=== PATIENT | female | born 1990 | race African-American/Black ===

== ENCOUNTER 2021-07-19 15:00 | Emergency (ER) | payer OTHER, SELFPAY ==
[2021-07-19 15:11] VITALS: BP 101/64; PULSE 62; RESP 16; TEMP 36.9; O2SAT 100
--- NOTE | 2021-07-19 15:28 | ED.SKABFB ---
HPI - Skin/Abscess/Foreign Bdy General Chief complaint: Skin/Abscess/Foreign Body Stated complaint: Boil under arm Time Seen by Provider: 07/19/21 15:28 Source: patient Mode of arrival: ambulatory Limitations: no limitations History of Present Illness HPI narrative: Jimbo Morales is a 31 yo female with a PMH of abscess under arms who [facility] with a soft developing abscess under her left arm. She states she has them annually always under the left arm. However the area is not yet very indurated. She is not allergic to any medications; has had to have abscesses drained only once Related Data Allergies Allergy/AdvReac Type Severity Reaction Status Date / Time No Known Allergies Allergy Verified 07/19/21 15:09 Review of Systems Review of Systems: CONSTITUTIONAL: Denies fever, chills, sweats. EYES: Denies visual changes, redness, discharge. ENT: Denies rhinorrhea, congestion, sore throat, otalgia. CARDIOVASCULAR: Denies chest pain, palpitations, edema. RESPIRATORY: Denies dyspnea, wheezing, cough GASTROINTESTINAL: Denies abdominal pain, nausea, vomiting, diarrhea. GENITOURINARY: Denies dysuria, hematuria, abnormal discharge SKIN: Denies rash or itching. Small area under left arm that is tender to touch NEUROLOGIC: Denies numbness, or focal weakness. PSYCHIATRIC: Denies anxiety or depression. PMFSH Past Medical History Medical History Abscess of axilla, left Surgical History Surgical History S/P lumpectomy, right breast Family History Family History (Updated 07/19/21 @ 15:34 by Rosibel Nazario CNP) Other Hypertension Social History Social History Smoking status: Never smoker Gender identity (if verbalized by the patient): Female Comments At time of signature, I agree with nursing past medical, surgical, social and family history. There is no relevant family history pertinent to the presenting complaint. Exam Narrative: GENERAL: This is a well-nourished, well-developed patient, in mild distress. HEAD: normocephalic, atraumatic. EYES: Sclera clear/white. Vision is grossly intact. EARS: External ears normal. Hearing grossly intact. NOSE: External nose normal without nasal discharge, nares without redness, no rhinorrhea. THROAT: Mucous membranes moist, NECK: Neck supple, non-tender CARDIOVASCULAR: Regular rate and rhythm without murmurs, gallops, or rubs. RESPIRATORY: Clear to auscultation. Breath sounds equal bilaterally. No wheezes, rales, or rhonchi. GASTROINTESTINAL: Abdomen soft, SKIN: warm, intact with no suspicious lesions or rash, good texture and turgor. Small lesion 2 x 3 under left axilla that is not indurated but is very tender to touch NEURO: awake, alert, and oriented to person, place and time. There were no obvious focal neurologic abnormalities. Steady gait EXTREMITIES: Normal range of motion. BACK: Nontender without deformity Course Course Emergency Course: Patient comes with a history of abscess to her left arm she is in the beginning stages of developing another one Started on antibiotics; warm soaks under left arm Vital Signs Vital signs: Vital Signs Temperature 98.4 F 07/19/21 15:11 Pulse Rate 62 07/19/21 15:11 Respiratory Rate 16 07/19/21 15:11 Blood Pressure 101/64 07/19/21 15:11 Pulse Oximetry 100 07/19/21 15:11 Temperature 98.4 F 07/19/21 15:11 Pulse Rate 62 07/19/21 15:11 Respiratory Rate 16 07/19/21 15:11 Blood Pressure 101/64 07/19/21 15:11 Pulse Oximetry 100 07/19/21 15:11 MDM - Skin/Abscess/Foreign Bdy Differential Diagnosis Differential diagnosis: Likely abscess of skin or subcutaneous tissue, urticaria, contact dermatitis and other Critical Care Time Critical Care Time Critical Care Time: No Discharge Plan Discharge Clinical Impres
== END 2021-07-19 15:43 | disposition home or self-care (01) ==
PROVIDERS: Emergency Provider Nurse Practitioner; PCP Physician Assistant
DX: L03.112 Cellulitis of left axilla (principal)
CPT/HCPCS: 99213; G0463

== ENCOUNTER 2021-08-22 10:28 | Emergency (ER) | payer OTHER, SELFPAY ==
[2021-08-22 10:38] VITALS: BP 110/65; PULSE 68; RESP 18; TEMP 36.6; O2SAT 100
--- NOTE | 2021-08-22 11:05 | ED.SKABFB ---
HPI - Skin/Abscess/Foreign Bdy General Chief complaint: Skin/Abscess/Foreign Body Stated complaint: Swelling under Arm Time Seen by Provider: 08/22/21 11:07 Source: patient, family and RN notes reviewed Mode of arrival: ambulatory Limitations: no limitations History of Present Illness HPI narrative: 31 year old female who presents to [facility] with complaints of pain and firm tissue area in left axilla for the past 3 days. Patient reports some pain down her inner left arm also with no swelling or redness noted.Patient was seen last month for similar tender firm area of left axilla and was prescribed antibiotics which she completed. Patient denies any fevers, chills or sweats. Related Data Home Medications Medication Instructions Recorded Confirmed No Home Medications 08/22/21 08/22/21 Allergies Allergy/AdvReac Type Severity Reaction Status Date / Time No Known Allergies Allergy Verified 08/22/21 11:00 Review of Systems Review of Systems: CONSTITUTIONAL: Denies fever, chills, or sweats. EYES: Denies visual changes, redness, or discharge. ENT: Denies rhinorrhea, congestion, sore throat, or otalgia. CARDIOVASCULAR: Denies chest pain, palpitations, or edema. RESPIRATORY: Denies cough or dyspnea. GASTROINTESTINAL: Denies abdominal pain, nausea, vomiting, or diarrhea. GENITOURINARY: Denies dysuria or hematuria. SKIN: Denies rash or itching.1cm by 1cm firm tender area to left axilla with no induration with pain down inner upper arm without redness or swelling. MUSCULOSKELETAL: Denies back pain, joint pain, or myalgia. NEUROLOGIC: Denies headache, numbness, or weakness. PSYCHIATRIC: Denies anxiety or depression. All systems reviewed & are unremarkable except as noted in HPI and below PMFSH Past Medical History Medical History Abscess of axilla, left Surgical History Surgical History S/P lumpectomy, right breast Family History Family History (Updated 07/19/21 @ 15:34 by Rosibel Nazario CNP) Other Hypertension Social History Social History Smoking status: Never smoker Gender identity (if verbalized by the patient): Female Comments At time of signature agree with nursing documentation of past medical, surgical, family and social history . There is no relevant family history pertinent to presenting complaint. Exam Narrative: GENERAL: Well-appearing, well-nourished, and in no acute distress. HEAD: Normocephalic, atraumatic. EYES: PERRLA and EOMI. ENT: Nares clear, no rhinorrhea or epistaxis. Mucous membranes moist.TM's normal with good light reflex, throat pink with no lesions or exudates. NECK: Supple. no lymphadenopathy CHEST: Clear to auscultation. No respiratory distress. HEART: Regular rate and rhythm. No murmur heard. Normal peripheral pulses. ABDOMEN: Soft, nontender, nondistended, normal active bowel sounds. EXTREMITIES: Normal range of motion. No edema. SKIN: Warm, dry, no rash.1cm X1cm firm tender area noted to left axilla with no induration or redness of tissue with pain which does go down the inner aspect of her left inner arm, no redness or swelling to her left inner arm NEURO: No focal deficits. Alert and oriented x3. Course Vital Signs Vital signs: Vital Signs Temperature 36.6 C 08/22/21 10:38 Pulse Rate 68 08/22/21 10:38 Respiratory Rate 18 08/22/21 10:38 Blood Pressure 110/65 08/22/21 10:38 Pulse Oximetry 100 08/22/21 10:38 Temperature 36.6 C 08/22/21 10:38 Pulse Rate 68 08/22/21 10:38 Respiratory Rate 18 08/22/21 10:38 Blood Pressure 110/65 08/22/21 10:38 Pulse Oximetry 100 08/22/21 10:38 MDM - Skin/Abscess/Foreign Bdy Differential Diagnosis Differential diagnosis: Likely abscess of skin or subcutaneous tissue, cellulitis and other (nonindurated firm nodule left axilla) Medical Records
== END 2021-08-22 11:32 | disposition home or self-care (01) ==
PROVIDERS: Emergency Provider Registered Nurse; PCP Physician Assistant
DX: L03.112 Cellulitis of left axilla (principal)
CPT/HCPCS: 99213; G0463

== ENCOUNTER 2021-09-09 10:40 | Outpatient (CLI) | payer OTHER, SELFPAY ==
--- NOTE | ~2021-09-09 | US_ITS ---
US axilla LT 09/09/2021 11:26 Indication: Left axillary soreness for one month. Procedure: High-resolution ultrasound of the left axilla Comparison: No prior studies for comparison. Findings: There are normal-appearing lymph nodes in the left axilla with fatty hilum, largest measuri ng 1.7 x 1.1 x 0.7 cm. There is an oval hypoechoic mass measuring 9 x 8 x 5 mm with possible internal calcifications. Parallel orientation, no posterior features with internal vascularity. Impression: 1: Oval hypoechoic 9 mm left axillary mass with internal vascularity and possible internal calcificat ions. This does not have a typical appearance for lymph node. Ultrasound-guided left axillary biopsy recommended. BI-RADS CATEGORY 4-SUSPICIOUS ABNORMALITY . Reviewed, dictated and finalized at location A. [employer] Impression: 1: Oval hypoechoic 9 mm left axillary mass with internal vascularity and possib le internal calcifications. This does not have a typical appearance for lymph n ode. Ultrasound-guided left axillary biopsy recommended. BI-RADS CATEGORY 4-SUSPICIOUS ABNORMALITY .
[2021-09-12 17:27] LABS: Bartonella henselae IgG Negative; Bartonella henselae IgM Negative; Bartonella quintana IgG Negative; Bartonella quintana IgM Negative
== END 2021-09-09 10:41 | disposition home or self-care (01) ==
PROVIDERS: PCP Physician Assistant; Visit Provider Physician Assistant
DX: R59.1 Generalized enlarged lymph nodes (principal); L03.114 Cellulitis of left upper limb
CPT/HCPCS: 36415; 76882; 86611

== ENCOUNTER 2021-09-11 16:17 | Outpatient (CLI) | payer OTHER, SELFPAY ==
--- NOTE | ~2021-09-11 | US_ITS ---
EXAMINATION: US venous doppler UE EXAM DATE: 09/11/2021 17:27 INDICATION: LT Arm Pain Left Upper Arm Pain, Left Hand Cold. TECHNIQUE: Multiple grayscale, color flow, Doppler sonographic images of the left upper extremity vei ns obtained by technologist. Compression was performed where able. There is no prior study for jessica de la paz. FINDINGS: Scanning in the area annotated anterior lower arm above elbow area of palpable abnormality demonstrates a focal region which was measured at 1.1 x 0.3 x 0.8 cm, isoechoic to fat. Uncertain whe ther or not this could be a small lipoma. Left upper extremity: Jugular vein: ------------> Normal. Subclavian vein: --------> Normal. Axillary vein:------------> Normal. Brachial vein:-----------> Normal. Basilic vein: ------------> Normal. Cephalic vein: ----------> Normal. Radial vein: ------------> Normal. Ulnar vein: > Normal. IMPRESSION: No deep venous thrombosis of the left upper extremity. Reviewed, dictated and finalized at location A. [employer]
== END 2021-09-11 16:18 | disposition home or self-care (01) ==
PROVIDERS: PCP Physician Assistant; Visit Provider Physician Assistant
DX: M79.602 Pain in left arm (principal)
CPT/HCPCS: 93971

== ENCOUNTER 2021-11-21 14:17 | Emergency (ER) | payer OTHER, SELFPAY ==
[2021-11-21] VITALS (31 sets, daily range): BP systolic 108–125; BP diastolic 67–88; PULSE 68–79; RESP 16; TEMP 36.7; O2SAT 98–100
--- NOTE | 2021-11-21 16:38 | ED.DIZZY ---
HPI - Dizziness General Chief Complaint: Dizziness Stated Complaint: light headed Time Seen by Provider: 11/21/21 16:01 Source: patient and RN notes reviewed Mode of arrival: ambulatory Limitations: no limitations History of Present Illness HPI Narrative: 31-year-old female presenting to the emergency department for evaluation of 4 days of lightheaded and dizziness. Patient states that when the symptoms started she did have a mild headache but the headache has since resolved. Patient just completed her last menstrual cycle on 11/19. Patient states she did have some heavy bleeding at the time. Patient denies any current bleeding. Patient denies any fevers. Patient denies any associated nausea vomiting or diarrhea. Patient denies any headache. Patient denies any syncope. Patient states she did have an episode of this previously which was due to dehydration. Related Data Home Medications Medication Instructions Recorded Confirmed No Home Medications 08/22/21 08/22/21 Allergies Allergy/AdvReac Type Severity Reaction Status Date / Time No Known Allergies Allergy Verified 08/22/21 11:00 Review of Systems Review of Systems: CONSTITUTIONAL: Generalized weakness EYES: Denies visual changes, redness, or discharge. ENT: Denies rhinorrhea, congestion, sore throat, or otalgia. CARDIOVASCULAR: Denies chest pain, palpitations, or edema. RESPIRATORY: Denies cough or dyspnea. GASTROINTESTINAL: Denies abdominal pain, nausea, vomiting, or diarrhea. GENITOURINARY: Denies dysuria or hematuria. SKIN: Denies rash or itching. MUSCULOSKELETAL: Denies back pain, joint pain, or myalgia. NEUROLOGIC: Denies headache, numbness, or weakness. PMFSH Past Medical History Medical History Abscess of axilla, left Surgical History Surgical History S/P lumpectomy, right breast Family History Family History (Updated 07/19/21 @ 15:34 by Rosibel Nazario CNP) Other Hypertension Social History Social History Smoking status: Never smoker Gender identity (if verbalized by the patient): Female Exam Narrative: APPEARANCE: Well appearing, no pain, no distress, well-nourished. HEAD: normocephalic, atraumatic. EYES: PERRLA/EOMI, conjunctivae clear. NECK: Supple. No adenopathy, no masses. RESPIRATORY: Airway patent, respirations nonlabored. Clear to auscultation bilaterally, no rales, rhonchi, wheezing. CARDIOVASCULAR: Regular rate and rhythm without murmurs rubs or gallops. ABDOMINAL: Soft, nontender, nondistended, normal bowel sounds MUSCULOSKELETAL: Moves all extremities. Strength/ROM intact, No edema, No calf tenderness. NEURO: Alert. Cranial nerves II through XII intact. SKIN: Warm, dry. Normal Color Course Course Emergency Course: Patient did feel improved with treatment. Patient declined her Covid testing. Patient was updated the results of her work-up. All questions concerns were addressed. Patient was encouraged to have close follow-up with her primary care physician. Vital Signs Vital signs: Vital Signs Temperature 98.0 F 11/21/21 14:34 Pulse Rate 77 11/21/21 14:34 Respiratory Rate 16 11/21/21 14:34 Blood Pressure 113/68 11/21/21 14:34 Pulse Oximetry 99 11/21/21 14:34 Temperature 98.0 F 11/21/21 14:34 Pulse Rate 73 11/21/21 19:38 Respiratory Rate 16 11/21/21 19:38 Blood Pressure 125/88 11/21/21 19:38 Pulse Oximetry 100 11/21/21 19:38 MDM - Dizziness Lab Data Attestation: I reviewed the patient's lab results. Result diagrams: 11/21/21 16:51 11/21/21 16:51 Labs: Lab Results 11/21/21 11/21/21 11/21/21 Range/Units 16:51 16:51 16:51 WBC 3.8 L (4.5-10.0) K/mm3 RBC 4.70 (4.2-5.4) M/mm3 Hgb 14.1 (12.0-15.0) g/dL Hct 41.8 (37.0-47.0) % MCV 88.9 (80-100) fl
[2021-11-21] MEDS: SODIUM CHLORIDE 0.9% IV 1,000 ML 999 ML IV CONT (16:55)
--- NOTE | 2021-11-21 17:00 | PC.NURSE ---
patient refused COVID testing at this time. Dr Lopez aware
[2021-11-21 17:08] LABS: Hematocrit 41.8 % (37.0-47.0); Hemoglobin 14.1 g/dL (12.0-15.0); Mean Corpuscular HGB Conc 33.7 g/dl (32-36); Mean Corpuscular Volume 88.9 fl (80-100); Mean Platelet Volume 11.5 fl (7.4-10.4); Platelet Count Result 169 k/mm3 (150-375); Red Cell Distribution Width 13.1 % (11.5-14.5); White Blood Count 3.8 K/mm3 (4.5-10.0)
[2021-11-21 17:48] LABS: Band Neutrophils Percent 1 % (0-6); Lymphocytes Absolute Manual 1.63 K/mm3 (1.1-4.5); Monocytes Absolute Manual 0.34 K/mm3 (0.1-0.90); Monocytes Percent Manual 9 % (3-9); Neutrophils Absolute Manual 1.82 K/mm3 (1.7-7.2); Neutrophils Percent Manual 47 % (46-73); Platelet Estimate Adequate (Adequate); Total Cells Counted 100
[2021-11-21 17:53] LABS: Alanine Aminotransferase 21 U/L (4-35); Albumin Level 4.6 g/dL (3.5-5.1); Alkaline Phosphatase 65 U/L (38-126); Anion Gap 8 mmol/L (8-16); Aspartate Amino Transferase 35 U/L (14-36); Bilirubin,Total 0.9 mg/dL (0.2-1.3); Blood Urea Nitrogen 15 mg/dL (7-17); Calcium 9.2 mg/dL (8.4-10.2); Carbon Dioxide 23 mmol/L (22-30); Chloride 109 mmol/L (98-107); Estimated CRCL calculation 83 ml/min; Estimated Glomerular Filt Rate > 60; Glucose 98 mg/dL (65-110); Potassium 4.9 mmol/L (3.4-5.0); Sodium 140 mmol/L (137-145)
[2021-11-21 18:00] LABS: Add Urine Microscopic? YES; Appearance Urine Clear (Clear); Bilirubin Urine Negative (Negative); Blood Urine Negative (Negative); Color Urine Yellow (Yellow); Glucose Urine UA Negative (Negative); Ketones Urine Negative (Negative); Leukocyte Esterase Ur Negative LEU/UL (Negative); Mucus Urine Moderate /lpf; Nitrate Urine Negative (Negative); Protein Urine Negative (Negative); RBC Urine 0-2 /hpf (0-2); Squamous Epithelial Cell Urine Occasional /hpf (Few); WBC Urine 0-3 /hpf
[2021-11-21 18:01] LABS: Specific Grav Ur 1.032 (1.001-1.035)
== END 2021-11-21 19:38 | disposition home or self-care (01) ==
PROVIDERS: Emergency Provider Emergency Medicine; PCP Physician Assistant
DX: R53.1 Weakness (principal)
CPT/HCPCS: 36415; 80053; 81001; 81025; 85025; 96360; 99283; J7030

== ENCOUNTER 2022-03-24 16:32 | Emergency (ER) | payer OTHER, SELFPAY ==
--- NOTE | 2022-03-24 17:25 | ED.SKABFB ---
HPI - Skin/Abscess/Foreign Bdy General Chief complaint: Skin/Abscess/Foreign Body Stated complaint: skin infection Time Seen by Provider: 03/24/22 17:18 History of Present Illness HPI narrative: 31-year-old female presents to the emergency room for evaluation of draining abscess under left axilla. Patient has history of hidradenitis suppurativa. Patient states that she has been appointment with her general surgeon to have the lesion removed. Patient noticed increased pain yesterday and some purulent foul-smelling discharge. Related Data Allergies Allergy/AdvReac Type Severity Reaction Status Date / Time No Known Allergies Allergy Verified 08/22/21 11:00 Review of Systems Review of Systems: CONSTITUTIONAL: Denies fever, chills, or sweats. EYES: Denies visual changes, redness, or discharge. ENT: Denies rhinorrhea, congestion, sore throat, or otalgia. CARDIOVASCULAR: Denies chest pain, palpitations, or edema. RESPIRATORY: Denies cough or dyspnea. GASTROINTESTINAL: Denies abdominal pain, nausea, vomiting, or diarrhea. GENITOURINARY: Denies dysuria or hematuria. SKIN: Reports abscess to left axilla MUSCULOSKELETAL: Denies back pain, joint pain, or myalgia. NEUROLOGIC: Denies headache, numbness, dizziness, or weakness. PSYCHIATRIC: Denies anxiety or depression. PMFSH Past Medical History Medical History Abscess of axilla, left Surgical History Surgical History S/P lumpectomy, right breast Family History Family History Other Hypertension Social History Social History Smoking status: Never smoker Gender identity (if verbalized by the patient): Female Exam Narrative: GENERAL: Well-appearing, well-nourished, and in no acute distress. HEAD: Normocephalic, atraumatic. EYES: PERRLA and EOMI. ENT: Nares clear, no rhinorrhea or epistaxis. Mucous membranes moist. Oropharynx without tonsillar hypertrophy exudate or other lesions. Bilateral TMs pearly nicolas nonbulging NECK: Supple. No adenopathy or masses. No carotid bruits or JVD CHEST: Clear to auscultation. No respiratory distress. No wheezes rales or rhonchi HEART: Regular rate and rhythm. No murmur heard. Normal peripheral pulses. ABDOMEN: Soft, nontender, nondistended, normal active bowel sounds. EXTREMITIES: Normal range of motion. No edema. SKIN: Left axilla: Localized erythema, warmth. Sensitive to light touch around the erythematous area. No notable lymphangitic spread no area of fluctuance. No observable drainage NEURO: No focal deficits. Alert and oriented x3. PSYCH: Normal mood and affect. Course Vital Signs Vital signs: Vital Signs Temperature 36.5 C 03/24/22 17:26 Pulse Rate 89 03/24/22 17:26 Respiratory Rate 16 03/24/22 17:26 Blood Pressure 139/84 03/24/22 17:26 Pulse Oximetry 99 03/24/22 17:26 Oxygen Delivery Room Air 03/24/22 17:26 Temperature 36.5 C 03/24/22 17:26 Pulse Rate 89 03/24/22 17:26 Respiratory Rate 16 03/24/22 17:26 Blood Pressure 139/84 03/24/22 17:26 Pulse Oximetry 99 03/24/22 17:26 Oxygen Delivery Room Air 03/24/22 17:26 Discharge Plan Discharge Clinical Impression: Axillary hidradenitis suppurativa Patient Disposition: Home, Self-Care Condition: Stable Instructions: Antibiotic Form, Abscess (ED) Prescriptions: New clindamycin HCl 300 mg capsule 300 mg PO Q8H 10 Days Qty: 30 0RF No Action clindamycin HCl 300 mg capsule 300 mg PO BID 10 Days Qty: 20 0RF Follow-up/Referrals: PHYSICIAN NOT ON STAFF,NONSTAFF [Primary Care Provider] - Time of Disposition: 17:30
[2022-03-24 17:26] VITALS: BP 139/84; PULSE 89; RESP 16; TEMP 36.5; O2SAT 99
== END 2022-03-24 17:54 | disposition home or self-care (01) ==
LOC: ANHED 17:38
PROVIDERS: Emergency Provider Nurse Practitioner Family
DX: L73.2 Hidradenitis suppurativa (principal)
CPT/HCPCS: 99283

== ENCOUNTER 2022-10-08 16:58 | Emergency (ER) | payer OTHER, SELFPAY ==
--- NOTE | ~2022-10-08 | XR_ITS ---
XR hip RT 2V w AP pelvis 10/08/2022 19:01 Indication: Right lateral hip Procedure: AP pelvis and 2 views right hip Comparison: No prior studies for comparison. Findings: There is mild bilateral symmetric osteoarthritis of the hips. Pelvic rings are intact. Sacr al foramen are symmetric. No acute fracture or traumatic malalignment. No focal soft tissue abnormali ty. Impression: 1: No acute fracture. 2: Mild bilateral symmetric osteoarthritis of the hips. Reviewed, dictated and finalized at location A. [employer] Impression: 1: No acute fracture. 2: Mild bilateral symmetric osteoarthritis of the hips.
[2022-10-08 17:25] VITALS: BP 122/67; PULSE 80; RESP 16; TEMP 36.4; O2SAT 100
--- NOTE | 2022-10-08 21:13 | ED.EXTPRO ---
HPI - Extremity Problem General Chief complaint: Extremity Problem,Nontraumatic Stated complaint: R hip pain Time Seen by Provider: 10/08/22 21:11 Mode of arrival: ambulatory Limitations: no limitations History of Present Illness HPI Narrative: Pt to ER with complaints of having right hip pain for the past week. It is exacerbated by weight lifting and squatting. She has no numbness or tingling and she has no weakness with weight bearing. She has not taken anything for the pain. No acute injury and no other complaints. Related Data Allergies Allergy/AdvReac Type Severity Reaction Status Date / Time No Known Allergies Allergy Verified 10/08/22 22:01 Review of Systems Review of Systems: All systems reviewed & are unremarkable except as noted in HPI and below PMFSH Past Medical History Medical History Abscess of axilla, left Surgical History Surgical History S/P lumpectomy, right breast Family History Family History Other Hypertension Social History Social History Smoking status: Never smoker Gender identity (if verbalized by the patient): Female Exam Const: General: healthy appearing, no acute distress and alert Nutritional Appearance: well nourished Orientation/consciousness: patient oriented x3 Limitations: no limitations HENMT: Head: normal to inspection Ears: external ears normal Face/Nose/Sinus: Normal external nose present and Normal nares present Face and sinus: normal facial exam and sinuses nontender Mouth: Yes Normal oral and palatal mucosa present Eyes: Conjunctivae: conjunctivae normal Pupils: Equal, round and reactive pupils present EOM: EOMs intact bilaterally Neck: Neck: normal visual inspection Chest: Chest palpation & inspection: normal inspection of the chest and no tenderness Resp: Effort & Inspection: normal respiratory effort Auscultation: clear to auscultation bilaterally Cardio: Rate: regular rate Rhythm: regular rhythm Heart sounds: no murmurs GI: Inspection: non-distended Auscultation: normal bowel sounds Back/Spine/Pelvis: Back: no CVA tenderness Skin: General skin exam: normal color Rashes: no rashes Wounds: no wounds Neuro: General: patient oriented x3, moves all extremities, no meningeal signs, no focal motor deficits and CN's II-XI intact bilaterally Cranial nerves: Yes Nystagmus not present Speech: normal speech Gait exam (Neuro): Normal gait present Extrem: General: normal to inspection, no clubbing, cyanosis or edema, no pedal edema and edema Other: There is tenderness over the right greater trochanter with abduction and external rotation of the right leg. There is no crepitus present. Psych: Mental Status: mental status grossly normal Affect: normal affect Course Course Emergency Course: Pt's imaging was reviewed and it demonstrates bilateral osteoarthritis of the hips. She has a benign exam. Vital Signs Vital signs: Vital Signs Temperature 97.6 F 10/08/22 17:25 Pulse Rate 80 10/08/22 17:25 Respiratory Rate 16 10/08/22 17:25 Blood Pressure 122/67 10/08/22 17:25 Pulse Oximetry 100 10/08/22 17:25 Oxygen Delivery Room Air 10/08/22 17:25 Temperature 98.4 F 10/08/22 22:03 Pulse Rate 85 10/08/22 22:03 Respiratory Rate 16 10/08/22 22:03 Blood Pressure 125/90 10/08/22 22:03 Pulse Oximetry 99 10/08/22 22:03 Oxygen Delivery Room Air 10/08/22 17:25 MDM - Extremity (Nontraumatic) MDM Narrative Medical decision making narrative: See Hospital course Differential Diagnosis Differential diagnosis: Likely other (Bursitis, OA, Inflammation, musculoskeletel pain) Lab Data Labs: UCG Bedside Result Negative Ref
[2022-10-08 22:03] VITALS: BP 125/90; PULSE 85; RESP 16; TEMP 36.9; O2SAT 99
== END 2022-10-08 22:04 | disposition home or self-care (01) ==
PROVIDERS: Emergency Provider Nurse Practitioner Adult Health
DX: M16.0 Bilateral primary osteoarthritis of hip (principal)
CPT/HCPCS: 73502; 81025; 99283

== ENCOUNTER 2023-12-13 06:22 | Emergency (ER) | payer OTHER, SELFPAY ==
[2023-12-13 06:27] VITALS: BP 109/40; PULSE 74; RESP 15; TEMP 35.7; O2SAT 100
[2023-12-13 07:23] VITALS: BP 124/66; PULSE 93; RESP 18; TEMP 36.5; O2SAT 100
[2023-12-13 07:54] LABS: Appearance Urine Clear (Clear); Bilirubin Urine Negative (Negative); Blood Urine Negative (Negative); Color Urine Yellow (Yellow); Glucose Urine UA Negative (Negative); Ketones Urine Trace mg/dL (Negative); Leukocyte Esterase Ur Negative LEU/UL (Negative); Nitrate Urine Negative (Negative); Protein Urine Negative (Negative); Specific Grav Ur 1.027 (1.001-1.035)
[2023-12-13 07:55] LABS: Add Urine Microscopic? NO
[2023-12-13 08:56] LABS: Trichomonas Vag PCR NOT DETECTED (NOT DETECTE)
--- NOTE | 2023-12-13 09:12 | ED.WOUNDLAC ---
HPI - Wound/Laceration General Chief Complaint: Wound/Laceration Stated Complaint: lac on genitals Time Seen by Provider: 12/13/23 06:59 History of Present Illness HPI narrative: Patient is a 33-year-old female who presents ER with discomfort near her vagina. She reports over last week she has developed bumps to the left side of her labia and perineal area. She has also developed vaginal discharge. She has been sexually active with the same partner over last month. Denies fevers or chills or sweats. She noticed an area where the bone started the scan has opened up in a linear fashion approximately 2.5 cm in length. No redness or purulent drainage around that wound. She reports burning urination when the urine hits her friable skin but not around the urethra. Denies history of herpetic infection. She reports she did have chickenpox as a kid. LMP was 11/14/2023. Related Data Allergies Allergy/AdvReac Type Severity Reaction Status Date / Time No Known Allergies Allergy Verified 12/13/23 06:47 Review of Systems Review of Systems: All systems reviewed & are unremarkable except as noted in HPI and below Constitutional: Constitutional: Reports no additional constitutional complaints Cardiovascular: Cardiovascular: Reports no additional cardiovascular complaints Respiratory: Respiratory: Reports no additional respiratory complaints Gastrointestinal: Gastrointestinal: Reports no additional gastrointestinal complaints Genitourinary: Genitourinary: Denies abnormal vaginal bleeding, Denies hematuria, Denies nocturia, Reports genital lesions, Denies dysuria, Denies pelvic pain and Reports vaginal discharge Musculoskeletal: Musculoskeletal: Reports no additional musculoskeletal complaints [facility] Past Medical History Medical History Abscess of axilla, left Cyst (10/08/19) cyst removed from left arm Cyst (~2007) cyst removed from right ear Surgical History Surgical History History of colposcopy (01/05/18) Benign S/P lumpectomy, right breast (2011) right breast biopsy Benign Family History Family History (Updated 02/01/23 @ 14:27 by LARON Villavicencio) Father Hypertension Mother Hypertension Sibling Hypertension Social History Social History (Updated 02/01/23 @ 14:27 by LARON Villavicencio) Smoking status: Never smoker Alcohol intake: never Substance use: never Substance use type: does not use Living arrangements: other Additional living arrangements comments: single Occupation/Education: occupation 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 HEAD: Normocephalic, atraumatic. ENT: Mucous membranes moist. NECK: Supple. CHEST: Clear to auscultation. No respiratory distress. HEART: Regular rate and rhythm. Normal peripheral pulses. ABDOMEN: Soft, nontender, nondistended. : Herpetic infection to the inferior aspect of the left labial region that also crosses midline near the rectum. No ulcerations only vesicles at this time. speculum exam shows non friable cervix with moderate white discharge. No CMT. 2.5cm fissure lateral to left labia. EXTREMITIES: Normal range of motion. No edema. NEURO: Alert and oriented x3. PSYCH: Normal mood and affect. Course Course Emergency Course: Patient found to be while in the ER. 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 I discussed case with Dr. Scales and she would like the patient to have routine follow up for the . Patient educated on treatment plan. Vital Signs Vital signs: Vital Signs Temperature 96.2 F L 12/13/23 06:27 Pulse Rate 74 12/13/23 06:27
[2023-12-13 09:22] LABS: Chlamydia trachomatis NOT DETECTED (NOT DETECTE); Neisseria gonorrhoeae PCR NOT DETECTED (NOT DETECTE)
[2023-12-13 09:50] VITALS: BP 118/78; PULSE 76; RESP 20; TEMP 36.3; O2SAT 100
== END 2023-12-13 09:52 | disposition home or self-care (01) ==
PROVIDERS: Emergency Provider Emergency Medicine
DX: O98.311 Other infections with a predominantly sexual mode of transmission complicating pregnancy, first trimester (principal); A60.04 Herpesviral vulvovaginitis; Z3A.00 Weeks of gestation of pregnancy not specified
CPT/HCPCS: 81003; 81025; 87491; 87591; 87661; 99284

== ENCOUNTER 2023-12-23 15:14 | Outpatient (CLI) | payer MEDICAID, SELFPAY | END 2023-12-23 15:15 | disposition home or self-care (01) | LOC: ANHLAB 15:16 | PROVIDERS: Visit Provider Student in an Organized Health Care Education/Training Program | DX: N91.2 Amenorrhea, unspecified (principal) | CPT/HCPCS: 36415; 84702 ==

== ENCOUNTER 2024-01-10 14:40 | Outpatient (CLI) | payer OTHER, SELFPAY ==
[2024-01-10 15:09] LABS: Basophils Percent Auto 0.4 % (0.2-1.2); Eosinophils Absolute Auto 0.1 K/mm3 (0-0.3); Eosinophils Percent Auto 1.3 % (0-4.4); Hematocrit 37.6 % (37.0-47.0); Hemoglobin 12.5 g/dL (12.0-15.0); Immature Granulocyte Absolute 0.04 K/mm3 (0.00-0.031); Immature Granulocyte Percent A 0.6 % (0-0.5); Lymphocytes Absolute Auto 1.77 K/mm3 (0.9-3.2); Lymphocytes Percent Auto 25.1 % (18.3-44.2); Mean Corpuscular HGB Conc 33.2 g/dl (32-36); Mean Corpuscular Hemoglobin 29.8 pg (26-34); Mean Corpuscular Volume 89.7 fl (80-100); Mean Platelet Volume 10.9 fl (7.4-10.4); Monocytes Absolute Auto 0.5 K/mm3 (0.1-0.6); Monocytes Percent Auto 6.8 % (2.6-8.5); Neutrophils Absolute Auto 4.7 K/mm3 (1.3-6.7); Neutrophils Percent Auto 65.8 % (45.5-73.1); Platelet Count Result 185 k/mm3 (150-375); Red Blood Count 4.19 M/mm3 (4.2-5.4); Red Cell Distribution Width 14.2 % (11.5-14.5); White Blood Count 7.1 K/mm3 (4.5-10.0)
[2024-01-10 16:02] LABS: HIV 1/2 Ab P24 Ag Result Negative (Negative)
[2024-01-10 19:29] LABS: Hepatitis B Surface Antigen Negative (Negative); Rubella IgG Antibody 10.7 IU/ML
[2024-01-11 13:05] LABS: Rapid Plasma Reagin Non-Reactive (NonReactive)
[2024-01-14 13:56] LABS: Varicella IgG Antibody >4000.00 Index (>=165.00)
== END 2024-01-10 14:41 | disposition home or self-care (01) ==
LOC: ANHLAB 14:43
PROVIDERS: Visit Provider Student in an Organized Health Care Education/Training Program
DX: N94.89 Other specified conditions associated with female genital organs and menstrual cycle (principal)
CPT/HCPCS: 36415; 85025; 85660; 86592; 86644; 86703; 86747; 86762; 86787; 86850; 86900; 86901; 87086; 87340; G0432

== ENCOUNTER 2024-05-31 08:01 | Outpatient (CLI) | payer MEDICAID, SELFPAY ==
[2024-05-31 09:52] LABS: Basophils Percent Auto 0.3 % (0.2-1.2); Eosinophils Absolute Auto 0.1 K/mm3 (0-0.3); Eosinophils Percent Auto 0.8 % (0-4.4); Hematocrit 36.2 % (37.0-47.0); Hemoglobin 12.1 g/dL (12.0-15.0); Immature Granulocyte Absolute 0.13 K/mm3 (0.00-0.031); Immature Granulocyte Percent A 1.4 % (0-0.5); Lymphocytes Percent Auto 15.2 % (18.3-44.2); Mean Corpuscular HGB Conc 33.4 g/dl (32-36); Mean Corpuscular Hemoglobin 30.3 pg (26-34); Mean Corpuscular Volume 90.7 fl (80-100); Mean Platelet Volume 10.9 fl (7.4-10.4); Monocytes Absolute Auto 0.5 K/mm3 (0.1-0.6); Monocytes Percent Auto 5.6 % (2.6-8.5); Neutrophils Absolute Auto 7.1 K/mm3 (1.3-6.7); Neutrophils Percent Auto 76.7 % (45.5-73.1); Platelet Count Result 175 k/mm3 (150-375); Red Blood Count 3.99 M/mm3 (4.2-5.4); Red Cell Distribution Width 14.2 % (11.5-14.5); White Blood Count 9.2 K/mm3 (4.5-10.0)
[2024-05-31 10:02] LABS: Glucose 1 Hour PP 50gm Dose 99 mg/dL
[2024-05-31 10:41] LABS: HIV 1/2 Ab P24 Ag Result Negative (Negative)
[2024-06-01 10:48] LABS: Rapid Plasma Reagin Non-Reactive (NonReactive)
== END 2024-05-31 08:02 | disposition home or self-care (01) ==
LOC: ANHLAB 08:02
PROVIDERS: Visit Provider Obstetrics & Gynecology
DX: Z34.90 Encounter for supervision of normal pregnancy, unspecified, unspecified trimester (principal)
CPT/HCPCS: 36415; 82947; 85025; 86592; 86703; G0432

== ENCOUNTER 2024-08-11 06:45 | Inpatient (IN) | payer OTHER, MEDICAID, SELFPAY ==
[2024-08-11] VITALS (228 sets, daily range): BP systolic 83–139; BP diastolic 48–110; PULSE 60–236; RESP 16; TEMP 36.1–36.7; O2SAT 88–100; BMI 35.1
--- NOTE | 2024-08-11 07:45 | PM.IMHP ---
H&P: HPI History of Present Illness Date/Time: 08/11/24 07:45 Chief Complaint: leaking fluid Narrative: Jimbo is a 34yo @ 39.3wks who presented to L&D with leakage of fluid. She was found to be grossly ruptured with leakage of clear fluid. She reports occasional contractions. No VB. Normal movement. She has had regular care. Her is complicated by: - HSV; on acyclovir ppx since 36wks - GBS positive Review of Systems Constitutional: Constitutional: Denies chills, Denies fever(s) and Denies headache(s) Eyes: Eyes: Denies change in vision ENT: Denies headache(s) Cardiovascular: Cardiovascular: Denies chest pain and Denies dyspnea Respiratory: Respiratory: Denies dyspnea Genitourinary: Genitourinary: Denies abnormal vaginal bleeding and Reports vaginal discharge Neurologic: Denies headache(s) Psychiatric: Psychiatric: Denies anxiety and Denies depression [facility] Past Medical History Medical History Abscess of axilla, left Cyst (10/08/19) cyst removed from left arm Cyst (~2007) cyst removed from right ear Suppression of menses Surgical History Surgical History History of colposcopy (01/05/18) Benign S/P lumpectomy, right breast (2011) right breast biopsy Benign Family History Family History Father Hypertension Mother Hypertension Sibling Hypertension Social History Social History Smoking status: Never smoker Alcohol intake: never Substance use: never Substance use type: does not use Do You Feel Safe in your Home?: Yes Lack of Transportation: No Lack of Food: Never True Current Housing: I Do Not Have Housing Concerned About Future Housing: No Difficulty Paying Gas/Electric Bills: No Difficulty Paying for Meds: No Currently Unemployed: No Education: High School Diploma/GED Difficulty w/ Childcare or Family Care: No Living arrangements: other Additional living arrangements comments: single Occupation/Education: occupation 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 Gender identity (if verbalized by the patient): Female Sexual Orientation (if Verbalized by the Patient): Straight or Heterosexual Spiritual care concerns: No Meds Home Medications and Allergies Home Medications Medication Instructions Recorded Confirmed Type vit no.95-ferrous 1 tablet PO DAILY #90 tabs 03/06/24 08/11/24 Rx fumarate 28 mg-folic acid 800 mcg tablet ( Multivitamins) valacyclovir 500 mg tablet 500 mg PO DAILY #30 tabs 07/19/24 08/11/24 Rx (Valtrex) Allergies Allergy/AdvReac Type Severity Reaction Status Date / Time No Known Allergies Allergy Verified 08/09/24 15:09 Vital Signs Vital Signs - 24 hr 08/11/24 07:15 08/11/24 07:30 Pulse Rate 87 98 Blood Pressure 119/91 H 134/92 H Exam Const: General: cooperative, comfortable, no acute distress and obese Nutritional Appearance: obese Orientation/consciousness: patient oriented x3 Resp: Effort & Inspection: normal respiratory effort Cardio: Rate: regular rate GI: GI Palp: No abdominal tenderness : Other: FHT's: 135's/ mod og/ + accels/ no decels - cat 1 TOCO: ctxs q2-6min Cervix: closed Membranes: SROM, clear Presentation: cephalic Skin: General skin exam: normal color Neuro: General: patient oriented x3 Extrem: General: normal to inspection Psych: Appearance: grossly normal Affect: normal affect Attitude: cooperative Assessment and Plan Assessment and plan (1) Leakage of amniotic fluid: Code(s): O42.90 - Premature rupture of membranes, unspecified as to length of time between rupture and onset of labor, unspecified weeks of gestation Status: Acute Plan - Admitted to L&D with SROM at term - Cervix unfavorable but maury irregularly; will start pitocin (maury too frequently for cytotec) - Ampicillin for GBS - Continuous monitoring; currently reassuring - Anesthesia consult PRN pain
[2024-08-11 07:49] LABS: Basophils Percent Auto 0.4 % (0.2-1.2); Eosinophils Absolute Auto 0.1 K/mm3 (0-0.3); Eosinophils Percent Auto 0.7 % (0-4.4); Hematocrit 38.8 % (37.0-47.0); Hemoglobin 13.1 g/dL (12.0-15.0); Immature Granulocyte Absolute 0.08 K/mm3 (0.00-0.031); Immature Granulocyte Percent A 1.1 % (0-0.5); Lymphocytes Absolute Auto 2.22 K/mm3 (0.9-3.2); Lymphocytes Percent Auto 29.2 % (18.3-44.2); Mean Corpuscular HGB Conc 33.8 g/dl (32-36); Mean Corpuscular Hemoglobin 30.1 pg (26-34); Mean Corpuscular Volume 89.2 fl (80-100); Mean Platelet Volume 11.2 fl (7.4-10.4); Monocytes Absolute Auto 0.7 K/mm3 (0.1-0.6); Monocytes Percent Auto 8.7 % (2.6-8.5); Neutrophils Absolute Auto 4.6 K/mm3 (1.3-6.7); Neutrophils Percent Auto 59.9 % (45.5-73.1); Nucleated Red Blood Cells Perc 0.3 % (0.0-0.2); Platelet Count Result 195 k/mm3 (150-375); Red Blood Count 4.35 M/mm3 (4.2-5.4); White Blood Count 7.6 K/mm3 (4.5-10.0)
--- NOTE | 2024-08-11 07:56 | LDADM ---
This patient, Jimbo Morales, was admitted to Labor/Delivery/Recovery 106 on 08/11/24 at 06:45. Plans for labor, pain management and were discussed with patient. Patient/family oriented to hospital policies and general routines including ID bracelet, bed and alarms, visiting hours, pain management, procedures, bathroom and other care routines, personal items, smoking policy, room service/diet and guest tray routines, security routines, and visiting hours. Patient/Family are encouraged to report perceived risks to care and to ask questions if they do not understand what they are told or what they should do. See OBIX for further documentation.
[2024-08-11] MEDS: AMPICILLIN 2 GM/NS 100 ML 2 GM/100 ML BAG IVPB (08:26)
[2024-08-11] MEDS: OXYTOCIN 30 UNITS/NS 500 ML 30 UNITS/500 ML BAG IV CONT (08:27)
[2024-08-11] MEDS: LACTATED RINGERS 1,000 ML 125 ML IV CONT ×4 (08:27→23:07)
[2024-08-11 09:24] LABS: HIV 1/2 Ab P24 Ag Result Negative (Negative)
[2024-08-11 10:06] LABS: Rapid Plasma Reagin Non-Reactive (NonReactive)
--- NOTE | 2024-08-11 12:42 | PM.OBPNLAB ---
Pain Control Date/time seen: 08/11/24 12:42 Pain control: epidural Pelvic Exam Dilation (cm): 1 (.5) Effacement (%): 50 station: -2 Amniotic membrane status: Ruptured Contractions Monitor mode: External Contraction frequency: 2 (-3) Status status: Category l Assessment and Plan Pitocin rate (mU/min): 2 Assessment: induction ongoing Plan: continuous present management
[2024-08-11] MEDS: AMPICILLIN 1 GM/NS 50 ML 1 GM/50 ML BAG IVPB ×3 (12:49→20:26)
--- NOTE | 2024-08-11 17:13 | PM.OBPNLAB ---
Pain Control Date/time seen: 08/11/24 17:13 Pain control: epidural Pelvic Exam Dilation (cm): 3 (.5) Effacement (%): 80 station: -2 Amniotic membrane status: Ruptured Contractions Monitor mode: External Contraction frequency: 2 (-3) Status status: Category l Assessment and Plan Pitocin rate (mU/min): 6 Assessment: induction ongoing Plan: continuous present management
[2024-08-12] VITALS (199 sets, daily range): BP systolic 80–145; BP diastolic 21–112; PULSE 64–265; RESP 16–18; TEMP 36.2–37.6; O2SAT 88–100
--- NOTE | 2024-08-12 00:06 | PM.OBPNLAB ---
Pain Control Date/time seen: 08/12/24 00:06 Pain control: epidural Pelvic Exam Dilation (cm): 5 (.5) Effacement (%): 90 station: -2 Amniotic membrane status: Ruptured Contractions Monitor mode: Internal Contraction frequency: 8 Status status: Category ll Comments: had two deep variables to 80s for 1 min x 2; has had return to category 1 for over an hour now Assessment and Plan Pitocin rate (mU/min): 0 Assessment: induction ongoing Plan: continuous present management Comments: - IUPC placed - Will restart low dose pitocin; has been over an hour of reassuring tracing - if recurrent variables noted, will start amnioinfusion of one time 300cc bolus
[2024-08-12] MEDS: AMPICILLIN 1 GM/NS 50 ML 1 GM/50 ML BAG IVPB ×3 (00:29→09:00)
[2024-08-12] MEDS: SODIUM CHLORIDE 0.9% IV 300 ML 600 ML I-UTERINE (03:28)
[2024-08-12] MEDS: TERBUTALINE SULFATE 1 MG/ML VIAL 0.25 MG SUB-Q (04:32)
[2024-08-12] MEDS: LACTATED RINGERS 1,000 ML 125 ML IV CONT (04:48)
--- NOTE | 2024-08-12 10:14 | PM.OBPNLAB ---
Pain Control Date/time seen: 08/12/24 10:14 Pain control: epidural Pelvic Exam Dilation (cm): 9 (.5) Effacement (%): 100 station: +1 Amniotic membrane status: Ruptured Contractions Monitor mode: Internal Contraction frequency: 3 Contraction pattern: Regular Status status: Category l Assessment and Plan Pitocin rate (mU/min): 4 Plan: continuous present management
--- NOTE | 2024-08-12 11:30 | P.PCNOB_ITS ---
OB - Vaginal Delivery Note Procedure Delivery date: 08/12/24 Events: Positive Group B Strep (GBS) and Other (SROM) Induction method: Per Pitocin Protocol Delivery augmentation: Pitocin Delivery monitor: External FHT and Internal Uterine Route of delivery: Episiotomy description: None Laceration Description: Perineal - 1st Degree Delivery repair: vicryl Specimen: Yes (placenta) Quantitative Blood Loss (ml): 400 Anesthesia type: Epidural Disposition: Floor Complications: No immediate complications [place] Baby Date of : 08/12/24 Time of : 11:15 Gestational Age by Date: 39 (.4) gender: Female Weight (pounds): 7 Weight (ounces): 13 presentation: vertex position: Right Occiput Anterior Placenta delivery description: Expressed Cord Vessel Description: 3 Vessels, Nuchal Cord, Loose and Clamped/Cut score one minute: 7 score five minutes: 8 Narrative: Jimbo progressed to complete dilation with strong desire to push. She pushed for approximately 20 minutes with good maternal effort. She delivered the head over intact perineum. Nuchal cord was noted but loose and delivered through. She easily delivered the 's shoulders and body without complication. The was immediately placed skin to skin and was stimulated and her mouth and nose were bulb suctioned. Decreased tone and cry were noted therefore the umbilical cord was then doubly clamped and cut. After that she was noted to then have a strong cry with good tone. A segment of cord was collected for cord gases. The remaining cord blood was collected for typing. With Pitocin running and gentle downward traction on the cord, the placenta delivered without complication. Bimanual massage was performed and good uterine tone was then noted. She was examined and a first-degree perineal laceration was identified. The perineal laceration was repaired the normal fashion using 2-0 Vicryl and was found to be hemostatic. Bimanual massage was once again performed and good uterine tone with minimal bleeding was noted. Sponge, lap, instrument, and needle counts were correct at the end of the procedure. Mom and baby were left bonding in the birthing suite in stable condition.
[2024-08-12] MEDS: OXYTOCIN 30 UNITS/NS 500 ML 30 UNITS/500 ML BAG 125 UNITS IV CONT (11:44)
[2024-08-12] MEDS: WITCH HAZEL 40 PADS 1 PAD TOPICAL (13:24)
[2024-08-12] MEDS: BENZOCAINE 20% AER SPR (*SP) 56 GM CAN 1 SPRAY TOPICAL (13:24)
[2024-08-12] MEDS: IBUPROFEN 600 MG TABLET PO ×2 (16:30→23:00)
[2024-08-12] MEDS: ACETAMINOPHEN 325 MG TABLET 650 MG PO (19:35)
[2024-08-13] MEDS: IBUPROFEN 600 MG TABLET PO ×2 (04:00→19:00)
[2024-08-13 05:19] LABS: Hematocrit 31.3 % (37.0-47.0); Hemoglobin 10.9 g/dL (12.0-15.0); Mean Corpuscular HGB Conc 34.8 g/dl (32-36); Mean Corpuscular Volume 88.9 fl (80-100); Mean Platelet Volume 11.6 fl (7.4-10.4); Platelet Count Result 148 k/mm3 (150-375); Red Blood Count 3.52 M/mm3 (4.2-5.4); Red Cell Distribution Width 15.2 % (11.5-14.5); White Blood Count 12.4 K/mm3 (4.5-10.0)
[2024-08-13 07:45] VITALS: BP 121/77; PULSE 71; RESP 16; TEMP 36.4
[2024-08-13] MEDS: MULTIVIT/MIN/PREN/FOL AC/IRON TABLET 1 TAB PO (07:53)
--- NOTE | 2024-08-13 09:05 | P.PNOB_ITS ---
OB - PN: Subj Subjective Date/time seen: 08/13/24 09:05 Narrative: PPD#1 Jimbo reports doing well today. 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 Her pain is controlled. She is tolerating regular diet, voiding, passing gas, and ambulating without issues. She is breast and bottle feeding. OB - PN: Obj Data Labs 08/13/24 04:34 Labs: Laboratory Results - last 24 hr 08/13/24 04:34 WBC 12.4 H RBC 3.52 L Hgb 10.9 L Hct 31.3 L MCV 88.9 MCH 31.0 MCHC 34.8 RDW 15.2 H Plt Count 148 L MPV 11.6 H OB - PN A/P Assessment and Plan (1) Normal vaginal delivery of first : Code(s): O80 - Encounter for full-term uncomplicated delivery Status: Acute Plan day: 1 Plan: routine care Comments: - PO pain meds - Regular diet - Ambulation and hydration encouraged - Continue putting baby to breast or pumping q2-3hr Time Spent With Patient Time: Total time spent is greater than 50% in coordination of care (as documented) at patient's floor/unit and/or counseling patient: Review of Systems Constitutional: Constitutional: Denies chills, Denies fever(s) and Denies headache(s) Eyes: Eyes: Denies change in vision ENT: Denies dizziness and Denies headache(s) Cardiovascular: Cardiovascular: Denies chest pain, Denies palpitations and Denies dyspnea Respiratory: Respiratory: Denies cough and Denies dyspnea Gastrointestinal: Gastrointestinal: Denies nausea and Denies vomiting Neurologic: Denies dizziness and Denies headache(s) Endocrine: Endocrine: Denies palpitations Exam Const: General: cooperative, comfortable and no acute distress Orientation/consciousness: patient oriented x3 Resp: Effort & Inspection: normal respiratory effort Auscultation: clear to auscultation bilaterally Cardio: Rate: regular rate GI: Inspection: non-distended GI Palp: No abdominal tenderness and Yes Soft to palpation Auscultation: normal bowel sounds : Other: fundus firm Skin: General skin exam: normal color Neuro: General: patient oriented x3 Extrem: General: normal to inspection Psych: Appearance: grossly normal Affect: normal affect Attitude: cooperative
--- NOTE | 2024-08-13 10:30 | PC.NURSE ---
Patient called out for help with . Patient sitting in chair with a pillow to support baby. Showed patient football hold, how to position baby, where to place her hands, and how to latch the baby. After a few minutes, baby was able to latch and sucked a few times. Patient then unlatched the baby and said, That's enough for now. I just wanted her to get a little bit of food since my milk isn't in yet. I educated the patient on how long the baby needs to nurse for on each side in order to bring her milk in. Provided education on how she does have colostrum right now that the baby can get when she nurses. Patient says that she will just feed the baby a bottle this feed and pump each side for 15 minutes.
[2024-08-13 19:00] VITALS: BP 140/87; PULSE 67; RESP 18; TEMP 36.6
[2024-08-13] MEDS: ACETAMINOPHEN 325 MG TABLET 650 MG PO (23:30)
[2024-08-14 07:30] VITALS: BP 121/81; PULSE 69; RESP 16; TEMP 36.3; O2SAT 100
[2024-08-14] MEDS: MULTIVIT/MIN/PREN/FOL AC/IRON TABLET 1 TAB PO (07:31)
[2024-08-14] MEDS: IBUPROFEN 600 MG TABLET PO (07:31)
--- NOTE | 2024-08-14 10:05 | PC.NURSE ---
0830. Introductions were made, then consulted with patient to assess needs related to . Mother led the conversation and reports that she thinks that she would like to pump and feed baby . Mom reports that latching infant did not go well and she likes the idea of pumping and feeding. Encouraged understanding of the benefits of skin to skin (demonstrating unwrapping and placing upright on her chest), stimulating with massage touch, changing positions to encourage wakefulness, how to watch for early feeding cues, responsive feeding, feeding on demand (aiming for 10-12 times in 24 hours, about every 2-3 hours), milk production, building/maintaining a milk supply, duration of feeding, signs of adequate intake/output and how to record on the feeding sheet. Mother changed her mind during the consult and wanted to attempt at the breast with this RN's assistance. Maximum assistance given to assist mom with latching . attempted in cross cradle position on the left breast with a couple successful latches but infant would not maintain the latch. Multiple attempts made. Reviewed positioning and ear, shoulder, hip alignment, supporting the breast to facilitate a deep latch, asymmetrical latch (off-center), leading with the chin with a big, open, wide gape and body close to mother. Education given to the mother of how to visualize the suckling (with good rocking jaw motion), swallows (dropping of the lower jaw) and how to listen for drinking at the breast (the ka sound). Infant was unable to maintain latch without pain to mother protecting the nipple with optimal positioning and latching. Reviewed comfort measures of healing with a warm, wet washcloth to rinse breast, then leave open to air-dry, good handwashing when or touching the breast/nipples to prevent infection. Mother voiced understanding of skin to skin, stimulating with massage touch, responsive feedings. Mother encouraged to call for the next feeding if she would like to attempt at the breast again. Nipple shield provided to mother due to infants inability to maintain latch and mom combo feeding. Reviewed good handwashing, cleaning the nipple shield and the appropriate way to apply and use as a tool. Discussed with mom the nipple shield precautions, possible complications associated with the risks and benefits. Reviewed practicing with a nipple shield, then without and how to protect the milk supply and production. Mom and baby guide referred to as a resource for outpatient services, community resources and when to call a provider. Mom voiced understanding of the importance of hand expression, nipple stimulation and initiating a pumping schedule if continues to nurse with the shield. Zomee pump provided per patients request. Pt reports she is on medicaid. Nipples measured at 18mm bilaterally. Pt education given on how to operate and set up the pump. Storage bags provided. Resources used for education were facilitated with the visual educational handouts & BM storage guidelines. Inpatient resources provided with feeding sheet name written on the communication board, and the mom/baby guide. Parents voiced understanding of information, demonstrated learning and will call if there is a request for assistance. Reported to the Primary RN.
--- NOTE | 2024-08-14 10:23 | PM.OBDSVD ---
DS: Admitting Diagnosis Discharge Date 08/14/24 Admitting Diagnosis SROM DS: Discharge Diagnosis Discharge Diagnosis (1) Normal vaginal delivery of first : Code(s): O80 - Encounter for full-term uncomplicated delivery Status: Acute OB - DS: Summary OB Procedures : Ultrasound OB Procedures Intrapartum: Spontaneous Vag Delivery OB Procedures: : None Peripartum Data Delivery Method: Natural Vaginal Laceration Description: Perineal - 1st Degree Episiotomy description: None complications: none 1: Gender: Female Disposition of : home Status at Discharge Functional status at discharge: independent ambulation Overall status at discharge: patient is back to baseline Time Spent with Patient Time attestation: Total time spent providing and/or coordinating discharge services: Exam Const: General: cooperative, comfortable and no acute distress Nutritional Appearance: obese Orientation/consciousness: patient oriented x3 Resp: Effort & Inspection: normal respiratory effort Auscultation: clear to auscultation bilaterally Cardio: Rate: regular rate GI: Inspection: non-distended GI Palp: No abdominal tenderness and Yes Soft to palpation Auscultation: normal bowel sounds : Other: fundus firm Skin: General skin exam: normal color Neuro: General: patient oriented x3 Extrem: General: normal to inspection Psych: Appearance: grossly normal Affect: normal affect Attitude: cooperative DS: Data Data Completed and Pending Pending studies at discharge: Pending at discharge 08/12/24 12:06 Surgical [PTH] Routine Labs on day of discharge: Labs from last 24 hours 08/13/24 04:34 WBC 12.4 H RBC 3.52 L Hgb 10.9 L Hct 31.3 L MCV 88.9 MCH 31.0 MCHC 34.8 RDW 15.2 H Plt Count 148 L MPV 11.6 H Discharge Plan Discharge Attending physician on discharge: Mariajose Reveles Discharging Clinician: Mariajose Reveles Anticipated Discharge Date/Time: 08/14/24 11:00 Patient Disposition: Home, Self-Care Activity: may shower and pelvic rest Diet: regular Patient Instructions: Vaginal Delivery (DC) Stand Alone Forms: General Discharge Information Follow-up/Referrals: Mariajose Reveles MD [Physician] - 4 Weeks Discharge Medications: New acetaminophen 325 mg Tablet 650 mg PO Q6H PRN (Reason: Mild Pain (1-3) Or Headache) Qty: 60 0RF docusate sodium 100 mg Capsule 100 mg PO BID PRN (Reason: Constipation) Qty: 60 0RF ibuprofen 600 mg Tablet 600 mg PO Q6H PRN (Reason: Cramping) Qty: 40 0RF Continued PNV cmb#95-ferrous fumarate-FA [ Multivitamins] 28 mg iron- 800 mcg tablet 1 tablet PO DAILY Qty: 90 2RF Discontinued valacyclovir [Valtrex] 500 mg tablet 500 mg PO DAILY Qty: 30 0RF Date of admission: 08/11/24 06:45 Primary Care Provider: UNKNOWN,DOCTOR Admitting Provider: Trevor Ramirez Attending physician on admission: Trevor Ramirez Condition: Stable
--- NOTE | 2024-08-14 11:27 | PC.NURSE ---
Patient instructed on viewing the discharge video Mother & Baby Care, The First Two Weeks . Patient was given the opportunity and encouraged to ask questions. Patient verbalized understanding of information shared and has been given the mother/baby guide for home reference.
--- NOTE | 2024-08-14 11:55 | PC.NURSE ---
1155. WIC referral faxed & sent per moms request to the [facility] office.
[2024-08-15 09:41] VITALS: BP 156/92; PULSE 66; RESP 18; TEMP 36.7; O2SAT 100
== END 2024-08-14 13:05 | disposition home or self-care (01) | DRG 806 ==
LOC: ANHLDR 07:32 → ANHOB2 08-13 05:19 → ANHLDR 08-15 13:30
PROVIDERS: Admitting Provider Obstetrics & Gynecology; Visit Provider Obstetrics & Gynecology
DX: O42.02 Full-term premature rupture of membranes, onset of labor within 24 hours of rupture (principal); O98.52 Other viral diseases complicating childbirth; Z37.0 Single live birth; Z3A.39 39 weeks gestation of pregnancy; O99.824 Streptococcus B carrier state complicating childbirth; O69.81X0 Labor and delivery complicated by cord around neck, without compression, not applicable or unspecified; O70.0 First degree perineal laceration during delivery; B00.9 Herpesviral infection, unspecified
CPT/HCPCS: 36415; 85025; 85027; 86592; 86703; 86850; 86900; 86901; 88307; A9270; G0432; J0290; J2590; J2795; J3105; J7030; J7120

== ENCOUNTER 2024-08-15 10:15 | Observation (INO) | payer OTHER, MEDICAID, SELFPAY ==
[2024-08-15] VITALS (28 sets, daily range): BP systolic 121–174; BP diastolic 71–104; PULSE 60–98; RESP 14–18; TEMP 36.2–36.5; O2SAT 98–100
[2024-08-15 10:51] LABS: Basophils Percent Auto 0.4 % (0.2-1.2); Eosinophils Absolute Auto 0.1 K/mm3 (0-0.3); Eosinophils Percent Auto 1.3 % (0-4.4); Hematocrit 34.6 % (37.0-47.0); Hemoglobin 11.9 g/dL (12.0-15.0); Immature Granulocyte Absolute 0.16 K/mm3 (0.00-0.031); Immature Granulocyte Percent A 1.8 % (0-0.5); Lymphocytes Absolute Auto 2.17 K/mm3 (0.9-3.2); Lymphocytes Percent Auto 24.1 % (18.3-44.2); Mean Corpuscular HGB Conc 34.4 g/dl (32-36); Mean Corpuscular Hemoglobin 30.7 pg (26-34); Mean Corpuscular Volume 89.4 fl (80-100); Mean Platelet Volume 10.3 fl (7.4-10.4); Monocytes Absolute Auto 0.8 K/mm3 (0.1-0.6); Monocytes Percent Auto 9.1 % (2.6-8.5); Neutrophils Absolute Auto 5.7 K/mm3 (1.3-6.7); Neutrophils Percent Auto 63.3 % (45.5-73.1); Platelet Count Result 194 k/mm3 (150-375); Red Blood Count 3.87 M/mm3 (4.2-5.4)
[2024-08-15 11:09] LABS: Alanine Aminotransferase 205 U/L (6-35); Albumin Level 3.6 g/dL (3.5-5.1); Alkaline Phosphatase 159 U/L (38-126); Anion Gap 7 mmol/L (4-12); Aspartate Amino Transferase 261 U/L (14-36); Blood Urea Nitrogen 15 mg/dL (7-17); Calcium 8.8 mg/dL (8.4-10.2); Carbon Dioxide 23 mmol/L (22-30); Chloride 110 mmol/L (98-107); Estimated Glomerular Filt Rate > 60; Glucose 70 mg/dL (65-110); Potassium 3.8 mmol/L (3.4-5.0); Sodium 140 mmol/L (137-145); Uric Acid 7.8 mg/dL (2.5-7.5)
--- NOTE | 2024-08-15 11:47 | PM.IMHP ---
H&P: HPI History of Present Illness Date/Time: 08/15/24 11:47 Chief Complaint: preeclampsia Narrative: 34-year-old 011 presents to the hospital for follow-up. Patient was noted have elevated blood pressures. She also complained of increased headache and increase in swelling. Upon further evaluation patient developed severe range blood pressures. Serum blood work was consistent preeclampsia. Review of Systems Cardiovascular: Cardiovascular: Denies chest pain, Denies leg edema, Denies palpitations, Denies dyspnea and Denies dyspnea on exertion Respiratory: Respiratory: Denies cough, Denies dyspnea and Denies dyspnea on exertion Gastrointestinal: Gastrointestinal: Denies abdominal pain, Denies constipation, Denies diarrhea, Denies nausea and Denies vomiting Genitourinary: Genitourinary: Denies hematuria, Denies urinary frequency, Denies dysuria, Denies pelvic pain, Denies urinary incontinence and Denies vaginal discharge Neurologic: Reports system reviewed and no additional complaints, except as documented Psychiatric: Psychiatric: Reports no additional psychiatric complaints Endocrine: Endocrine: Denies palpitations PMFSH Past Medical History Medical History Abscess of axilla, left Cyst (10/08/19) cyst removed from left arm Cyst (~2007) cyst removed from right ear Suppression of menses Surgical History Surgical History History of colposcopy (01/05/18) Benign S/P lumpectomy, right breast (2011) right breast biopsy Benign Family History Family History Father Hypertension Mother Hypertension Sibling Hypertension Social History Social History Smoking status: Never smoker Second hand tobacco smoke exposure: No Alcohol intake: never Substance use: never Substance use type: does not use Do You Feel Safe in your Home?: Yes Lack of Transportation: No Lack of Food: Never True Current Housing: I Have Housing Concerned About Future Housing: No Difficulty Paying Gas/Electric Bills: No Difficulty Paying for Meds: No Currently Unemployed: No Education: High School Diploma/GED Difficulty w/ Childcare or Family Care: No Living arrangements: other Additional living arrangements comments: single Occupation/Education: occupation 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 Gender identity (if verbalized by the patient): Female Sexual Orientation (if Verbalized by the Patient): Straight or Heterosexual Spiritual care concerns: No Meds Home Medications and Allergies Home Medications Medication Instructions Recorded Confirmed Type vit no.95-ferrous 1 tablet PO DAILY #90 tabs 03/06/24 08/11/24 Rx fumarate 28 mg-folic acid 800 mcg tablet ( Multivitamins) acetaminophen 325 mg tablet 650 mg PO Q6H PRN Mild Pain (1-3) 08/13/24 Rx Or Headache #60 tabs docusate sodium 100 mg capsule 100 mg PO BID PRN Constipation #60 08/13/24 Rx caps ibuprofen 600 mg tablet 600 mg PO Q6H PRN Cramping #40 tabs 08/13/24 Rx Allergies Allergy/AdvReac Type Severity Reaction Status Date / Time No Known Allergies Allergy Verified 08/09/24 15:09 Vital Signs Vital Signs - 24 hr 08/15/24 10:31 08/15/24 11:01 08/15/24 11:24 Pulse Rate 69 68 60 Blood Pressure 166/104 H 174/100 H 163/91 H 08/15/24 11:31 Pulse Rate 62 Blood Pressure 167/96 H Exam Const: General: no acute distress Eyes: EOM: EOMs intact bilaterally Neck: Neck: supple Thyroid: thyroid normal Chest: Breast/axilla inspection: normal inspection of the breasts Breast/axilla palpation: normal palpation of the breasts, normal palpation of the axillae and no axillary lymphadenopathy Resp: Effort & Inspection: normal respiratory effort Auscultation: clear to auscultation bilaterally Cardio: Rate: regular rate Rhythm: regular rhythm GI: Inspection: non-distended GI Palp: Yes Soft to palpation, No Tenderness to palpation present (GI) and No Guarding due to palpation present (GI) Auscultation: normal bowel sounds : General: No bladder normal to palpation External Female Exam: normal external appearance Speculum Exam - Vagina: normal vaginal discharge and No vaginal bleeding Speculum Exam - Cervix: nontender Bimanual exam- vagina & uterus: No bladder normal to palpation and No Cervical tenderness present OB/external & speculum: No vaginal bleeding Skin: General skin exam: normal color and no rashes or lesions noted Neuro: Cognition (Neuro): normal cognition Speech: normal speech Extrem: General: edema and pedal edema Psych: Mental Status: mental status grossly normal Affect: normal affect H&P: Results Labs Labs: Short CBC 08/15/24 Range/Units 10:44 WBC 9.0 (4.5-10.0) K/mm3 Hgb 11.9 L (12.0-15.0) g/dL Hct 34.6 L (37.0-47.0) % Plt Count 194 (150-375) k/mm3 BMP 08/15/24 10:44 Sodium 140 Potassium 3.8 Chloride 110 H Carbon Dioxide 23 BUN 15 Creatinine 0.90 Glucose 70 Calcium 8.8 Liver Function 08/15/24 Range/Units 10:44 Total Bilirubin 1.0 (0.2-1.3) mg/dL AST 261 H (14-36) U/L ALT 205 H (6-35) U/L Alkaline Phosphatase 159 H (38-126) U/L Albumin 3.6 (3.5-5.1) g/dL Assessment and Plan Assessment and plan (1) Preeclampsia in period: Code(s): O14.95 - Unspecified pre-eclampsia, complicating the puerperium Status: Acute Assessment and Plan: 34 yo who presented for follow up evaluation and was noted to have elevated BP pt complained a MATTHEW as well Pt was noted to have increased edema PIH labs revealed severely elevated liver enzymes BP were severe range upon evaluation plan to admit for management of preeclampsia Will administer 20 IV labetalol for acute management of BP plan for magnesium sulfate infusion for 24 hrs continuous BP monitoring will monitor I's & O's
[2024-08-15] MEDS: LABETALOL HCL INJ 100 MG/20 ML VIAL 20 MG IV PUSH (12:06)
[2024-08-15] MEDS: LACTATED RINGERS 1,000 ML 75 ML IV CONT (12:17)
[2024-08-15] MEDS: MAGNESIUM SULF 4 GM/WATER100ML 4 GM/100 ML BAG IVPB (12:17)
[2024-08-15] MEDS: MAGNESIUM SULF 20GM/WATER500ML 500 ML 50 MG IV CONT ×2 (12:40→22:12)
[2024-08-15] MEDS: IBUPROFEN 600 MG TABLET PO (16:47)
[2024-08-16] VITALS (13 sets, daily range): BP systolic 124–158; BP diastolic 84–104; PULSE 61–85; RESP 14–16; TEMP 36.1–36.4; O2SAT 98–100
[2024-08-16] MEDS: LACTATED RINGERS 1,000 ML 75 ML IV CONT (01:24)
[2024-08-16] MEDS: IBUPROFEN 600 MG TABLET PO ×3 (06:16→18:50)
[2024-08-16 07:20] LABS: Hematocrit 34.2 % (37.0-47.0); Hemoglobin 11.7 g/dL (12.0-15.0); Mean Corpuscular HGB Conc 34.2 g/dl (32-36); Mean Corpuscular Hemoglobin 30.3 pg (26-34); Mean Corpuscular Volume 88.6 fl (80-100); Mean Platelet Volume 10.4 fl (7.4-10.4); Platelet Count Result 203 k/mm3 (150-375); Red Blood Count 3.86 M/mm3 (4.2-5.4); Red Cell Distribution Width 14.9 % (11.5-14.5); White Blood Count 7.1 K/mm3 (4.5-10.0)
[2024-08-16 07:36] LABS: Alanine Aminotransferase 257 U/L (6-35); Albumin Level 3.4 g/dL (3.5-5.1); Alkaline Phosphatase 160 U/L (38-126); Anion Gap 5 mmol/L (4-12); Aspartate Amino Transferase 219 U/L (14-36); Bilirubin,Total 0.9 mg/dL (0.2-1.3); Blood Urea Nitrogen 11 mg/dL (7-17); Calcium 7.7 mg/dL (8.4-10.2); Carbon Dioxide 26 mmol/L (22-30); Chloride 104 mmol/L (98-107); Estimated Glomerular Filt Rate > 60; Glucose 93 mg/dL (65-110); Potassium 3.6 mmol/L (3.4-5.0); Sodium 135 mmol/L (137-145)
[2024-08-16] MEDS: MAGNESIUM SULF 20GM/WATER500ML 500 ML 50 MG IV CONT (08:14)
--- NOTE | 2024-08-16 12:27 | PC.NURSE ---
1215: Dr. Molina in department. orders to turn off the magnesium at 24 hours and continue vital signs Q4HRs.
--- NOTE | 2024-08-16 14:49 | PC.NURSE ---
1449: RN phoned Dr. Molina no answer at this time.
--- NOTE | 2024-08-16 15:13 | PC.NURSE ---
1514: Dr. Molina returned call RN reported vital signs, orders to give Procardia 30 XL now and continue with Q4H vital signs
--- NOTE | 2024-08-16 15:20 | PM.OBPNVD ---
OB - PN: Subj Subjective Date/time seen: 08/16/24 15:20 Interval history: 34-year-old 011 who presented 3 days from vaginal delivery with preeclampsia. Patient is doing well this morning. She denies any blurred vision, shortness of breath, change in abdominal pain. Patient is tolerating magnesium sulfate well. Patient has been diuresing well. She denies any abdominal pain or bleeding concerns. OB - PN: Obj Data Labs 08/17/24 06:53 08/17/24 06:53 Labs: Laboratory Results - last 24 hr 08/16/24 07:05 WBC 7.1 RBC 3.86 L Hgb 11.7 L Hct 34.2 L MCV 88.6 MCH 30.3 MCHC 34.2 RDW 14.9 H Plt Count 203 MPV 10.4 Sodium 135 L Potassium 3.6 Chloride 104 Carbon Dioxide 26 Anion Gap 5 BUN 11 Creatinine 0.90 Estim Creat Clear Calc Not Reportable Estimated GFR > 60 Glucose 93 Calcium 7.7 L Total Bilirubin 0.9 AST 219 H ALT 257 H Alkaline Phosphatase 160 H Total Protein 7.0 Albumin 3.4 L OB - PN A/P Assessment and Plan (1) Preeclampsia in period: Code(s): O14.95 - Unspecified pre-eclampsia, complicating the puerperium Status: Acute Assessment and Plan: 34-year-old 011 who was admitted 3 days for preeclampsia Patient received 20 mg of IV labetalol on admission Patient to receive 24 hours magnesium sulfate infusion Patient has been diuresing well Blood pressures have been controlled on magnesium sulfate Will plan to discharge magnesium after 24 hours Will continue to monitor blood pressures Will add p.o. antihypertensive agents as indicated Will repeat preeclampsia labs tomorrow, AST and ALT remained elevated Time Spent With Patient Time: Total time spent is greater than 50% in coordination of care (as documented) at patient's floor/unit and/or counseling patient: Review of Systems Review of Systems: All systems reviewed & are unremarkable except as noted in HPI and below Exam Const: General: cooperative Resp: Effort & Inspection: normal respiratory effort and able to speak in complete sentences Cardio: Rate: regular rate GI: Inspection: normal to inspection GI Palp: Yes Soft to palpation Skin: General skin exam: normal color Extrem: Right lower extremity: edema Left lower extremity: edema Psych: Appearance: grossly normal Mental Status: mental status grossly normal
[2024-08-16] MEDS: NIFEdipine 30 MG TAB.ER.24 PO (15:26)
[2024-08-17] VITALS (7 sets, daily range): BP systolic 117–148; BP diastolic 75–91; PULSE 60–89; RESP 16; TEMP 36.7–37.1; O2SAT 96–98
[2024-08-17] MEDS: IBUPROFEN 600 MG TABLET PO (06:45)
[2024-08-17 07:19] LABS: Alanine Aminotransferase 176 U/L (6-35); Albumin Level 3.4 g/dL (3.5-5.1); Alkaline Phosphatase 147 U/L (38-126); Anion Gap 2 mmol/L (4-12); Aspartate Amino Transferase 75 U/L (14-36); Bilirubin,Total 1.1 mg/dL (0.2-1.3); Blood Urea Nitrogen 10 mg/dL (7-17); Carbon Dioxide 29 mmol/L (22-30); Chloride 106 mmol/L (98-107); Estimated Glomerular Filt Rate > 60; Glucose 88 mg/dL (65-110); Potassium 3.9 mmol/L (3.4-5.0); Sodium 137 mmol/L (137-145)
--- NOTE | 2024-08-17 07:20 | PC.NURSE ---
Dr. Reveles on unit and informed pt's BP was 148/91 and she had a headache I gave her Motrin for. Waiting for labs to come back.
[2024-08-17 07:42] LABS: Hematocrit 38.4 % (37.0-47.0); Mean Corpuscular HGB Conc 33.9 g/dl (32-36); Mean Corpuscular Hemoglobin 30.4 pg (26-34); Mean Corpuscular Volume 89.9 fl (80-100); Mean Platelet Volume 10.8 fl (7.4-10.4); Platelet Count Result 232 k/mm3 (150-375); Red Blood Count 4.27 M/mm3 (4.2-5.4); Red Cell Distribution Width 14.6 % (11.5-14.5); White Blood Count 9.7 K/mm3 (4.5-10.0)
--- NOTE | 2024-08-17 08:25 | PC.NURSE ---
Dr. Reveles on unit and informed pt's liver enzymes are decreasing. will be in to see pt shortly.
--- NOTE | 2024-08-17 08:59 | PC.NURSE ---
Dr. Reveles in to see and assess pt. Informed pt she will be going home on the Procardia XL and she can take Motrin for her headache, but no Tylenol for the next couple of weeks due to her elevated liver enzymes. Discussed that pt hasn't had a bowel movements in 4 days. Order received for Miralax. Dr. Reveles wants to speak with Dr. Molina before discharging pt.
--- NOTE | 2024-08-17 09:08 | PC.NURSE ---
Dr. Reveles called back and would like pt to stay and be given a dose of Procardia XL at noon and may be discharged to home after that.
[2024-08-17] MEDS: polyethylene glycoL 3350 17 GM POWD.PACK PO (10:13)
--- NOTE | 2024-08-17 10:29 | PM.OBDSVD ---
DS: Admitting Diagnosis Discharge Date 08/17/24 Admitting Diagnosis preeclampsia OB - DS: Summary Hospital Course Hospital Course: 34 yo who presented 3 days PP with PP preeclampsia. Pt received Magnesium Sulfate for 24 hours. She was intiated on nifedipine. BP remained controlled. Pt diuresed well. OB Procedures : None OB Procedures Intrapartum: Other OB Procedures: : None Time Spent with Patient Time attestation: Total time spent providing and/or coordinating discharge services: DS: Data Data Completed and Pending Labs on day of discharge: Labs from last 24 hours 08/17/24 06:53 WBC 9.7 RBC 4.27 Hgb 13.0 Hct 38.4 MCV 89.9 MCH 30.4 MCHC 33.9 RDW 14.6 H Plt Count 232 MPV 10.8 H Sodium 137 Potassium 3.9 Chloride 106 Carbon Dioxide 29 Anion Gap 2 L BUN 10 Creatinine 0.90 Estim Creat Clear Calc Not Reportable Estimated GFR > 60 Glucose 88 Calcium 8.0 L Total Bilirubin 1.1 AST 75 H ALT 176 H Alkaline Phosphatase 147 H Total Protein 7.0 Albumin 3.4 L Discharge Plan Discharge Discharging Clinician: William Molina Patient Disposition: Home, Self-Care Activity: as tolerated and pelvic rest Diet: regular Patient Instructions: Antibiotic Form, Preeclampsia and Eclampsia After Delivery (GEN) Stand Alone Forms: General Discharge Information Follow-up/Referrals: William Molina MD [Physician] - 1 Week Discharge Medications: New nifedipine [Procardia XL] 30 mg Tablet Extended Release 24hr 30 mg PO QAM Qty: 60 1RF Continued PNV cmb#95-ferrous fumarate-FA [ Multivitamins] 28 mg iron- 800 mcg tablet 1 tablet PO DAILY Qty: 90 2RF docusate sodium 100 mg Capsule 100 mg PO BID PRN (Reason: Constipation) Qty: 60 0RF ibuprofen 600 mg Tablet 600 mg PO Q6H PRN (Reason: Cramping) Qty: 40 0RF Discontinued acetaminophen 325 mg Tablet 650 mg PO Q6H PRN (Reason: Mild Pain (1-3) Or Headache) Qty: 60 0RF Date of admission: 08/15/24 10:15 Primary Care Provider: UNKNOWN,DOCTOR Admitting Provider: William Molina Attending physician on admission: William Molina Condition: Stable
[2024-08-17] MEDS: NIFEdipine 30 MG TAB.ER.24 PO (12:01)
--- NOTE | 2024-08-17 12:47 | PC.NURSE ---
Pt has ordered lunch and will eat before leaving.
== END 2024-08-17 13:13 | disposition home or self-care (01) ==
PROVIDERS: Admitting Provider Student in an Organized Health Care Education/Training Program; Visit Provider Obstetrics & Gynecology
DX: O14.95 Unspecified pre-eclampsia, complicating the puerperium (principal)
CPT/HCPCS: 36415; 80053; 84550; 85025; 85027; A9270; J3475; J7120

== ENCOUNTER 2024-08-19 01:19 | Outpatient (CLI) | payer OTHER, MEDICAID, SELFPAY ==
[2024-08-19 01:46] VITALS: BP 152/90; PULSE 55; RESP 17; O2SAT 98
[2024-08-19 02:15] VITALS: BP 141/88; PULSE 60; RESP 15; TEMP 36.8; O2SAT 98
[2024-08-19 02:25] LABS: Alanine Aminotransferase 110 U/L (6-35); Albumin Level 3.5 g/dL (3.5-5.1); Alkaline Phosphatase 159 U/L (38-126); Anion Gap 5 mmol/L (4-12); Aspartate Amino Transferase 39 U/L (14-36); Bilirubin,Total 0.9 mg/dL (0.2-1.3); Blood Urea Nitrogen 15 mg/dL (7-17); Calcium 8.9 mg/dL (8.4-10.2); Carbon Dioxide 24 mmol/L (22-30); Chloride 110 mmol/L (98-107); Estimated Glomerular Filt Rate > 60; Glucose 93 mg/dL (65-110); Potassium 4.5 mmol/L (3.4-5.0); Sodium 139 mmol/L (137-145); Uric Acid 4.8 mg/dL (2.5-7.5)
--- NOTE | 2024-08-19 02:25 | PC.NURSE ---
Pt arrived on unit @ 0119 with c/o increased blood pressure @ home. Pt states bp was 125/94, 146/110, pt has headache that was not relieved by IBU, spots in her vision since before she delivered. Pt denies any blurry vision, n/v or right sided pain. Pt sitting in arm chair, BP cuff and Pulse ox applied. Call light within reach. Ice water provided to pt. Pt denies wanting anything for headache pain.
[2024-08-19 02:30] VITALS: BP 152/92; PULSE 57; O2SAT 99
[2024-08-19 02:32] LABS: Basophils Percent Auto 0.3 % (0.2-1.2); Eosinophils Absolute Auto 0.2 K/mm3 (0-0.3); Eosinophils Percent Auto 1.5 % (0-4.4); Hematocrit 37.8 % (37.0-47.0); Hemoglobin 12.8 g/dL (12.0-15.0); Immature Granulocyte Absolute 0.14 K/mm3 (0.00-0.031); Immature Granulocyte Percent A 1.4 % (0-0.5); Lymphocytes Absolute Auto 2.51 K/mm3 (0.9-3.2); Lymphocytes Percent Auto 25.8 % (18.3-44.2); Mean Corpuscular HGB Conc 33.9 g/dl (32-36); Mean Corpuscular Hemoglobin 30.7 pg (26-34); Mean Corpuscular Volume 90.6 fl (80-100); Mean Platelet Volume 9.9 fl (7.4-10.4); Monocytes Absolute Auto 0.8 K/mm3 (0.1-0.6); Monocytes Percent Auto 8.2 % (2.6-8.5); Neutrophils Absolute Auto 6.1 K/mm3 (1.3-6.7); Neutrophils Percent Auto 62.8 % (45.5-73.1); Platelet Count Result 239 k/mm3 (150-375); Red Blood Count 4.17 M/mm3 (4.2-5.4); Red Cell Distribution Width 14.6 % (11.5-14.5); White Blood Count 9.7 K/mm3 (4.5-10.0)
--- NOTE | 2024-08-19 02:42 | PC.NURSE ---
Call placed to Dr. Molina report pt c/o increased BP @ home 125/94, 146/110. Pt vitals BP while here 152/92, 141/88, 152/90 and pt labs compared to when she was discharged. Orders to send pt home, keep follow up appointment and keep taking the procardia once daily. Come back if pressures are consistently above 160/110.
[2024-08-19 02:45] VITALS: BP 163/95; PULSE 55
[2024-08-19 03:00] VITALS: BP 146/84; PULSE 61; O2SAT 100
--- NOTE | 2024-08-19 03:05 | PC.NURSE ---
Pt discharged home in stable condition per order from Dr. Molina. Discharge orders reviewed, pt to come back if BP is consistently 160/110 or over. Pt to follow up with Dr. Ramirez. Pt stated understanding, all questions and concerns answered. Pt ambulated out of department with all belongings, support person @ pt side.
--- NOTE | 2024-08-19 08:15 | P.PNOB_ITS ---
OB - Triage/Final Diagnosis Visit Information Date of evaluation: 08/19/24 Reason for evaluation: other (elevated blood pressure) Comments/Additional reasons for admission: I have assessed the risk for this patient, Jimbo Morales, and determined that she would benefit from observation care. Evaluation Laboratory results: Laboratory Tests 08/19/24 08/19/24 02:06 02:28 WBC 9.7 RBC 4.17 L Hgb 12.8 Hct 37.8 MCV 90.6 MCH 30.7 MCHC 33.9 RDW 14.6 H Plt Count 239 MPV 9.9 Immature Gran % (Auto) 1.4 H Neut % (Auto) 62.8 Lymph % (Auto) 25.8 Centre % (Auto) 8.2 Eos % (Auto) 1.5 Baso % (Auto) 0.3 Lymph # (Auto) 2.51 Centre # (Auto) 0.8 H Eos # (Auto) 0.2 Baso # (Auto) 0.0 Abs Immat Gran (auto) 0.14 H Absolute Neuts (auto) 6.1 Absolute Nucleated RBC 0.000 Nucleated RBC % 0.0 Sodium 139 Potassium 4.5 Chloride 110 H Carbon Dioxide 24 Anion Gap 5 BUN 15 D Creatinine 0.90 Estim Creat Clear Calc Not Reportable Estimated GFR > 60 Glucose 93 Uric Acid 4.8 Calcium 8.9 Total Bilirubin 0.9 AST 39 H ALT 110 H Alkaline Phosphatase 159 H Total Protein 7.0 Albumin 3.5 Vital signs: Vital Signs - 24 hr 08/19/24 01:46 08/19/24 02:15 08/19/24 02:45 Temperature 98.2 F Pulse Rate 55 L 60 55 L Respiratory Rate 17 15 Blood Pressure 152/90 H 141/88 H 163/95 H Pulse Oximetry 98 98 08/19/24 02:30 08/19/24 03:00 Temperature Pulse Rate 57 L 61 Respiratory Rate Blood Pressure 152/92 H 146/84 H Pulse Oximetry 99 100
== END 2024-08-19 03:05 | disposition home or self-care (01) ==
PROVIDERS: Student in an Organized Health Care Education/Training Program; Visit Provider Obstetrics & Gynecology
DX: O13.9 Gestational [pregnancy-induced] hypertension without significant proteinuria, unspecified trimester (principal); Z3A.00 Weeks of gestation of pregnancy not specified
CPT/HCPCS: 36415; 80053; 84550; 85025

== ENCOUNTER 2025-07-16 10:07 | Emergency (ER) | payer MEDICAID, OTHER, SELFPAY ==
[2025-07-16 10:11] VITALS: BP 119/74; PULSE 85; RESP 16; TEMP 36.8; O2SAT 100
--- OUTSIDE RECORDS SUMMARY | 2025-07-16 11:02 | XMS_ITS | Clinical Summary ---
Author Organization [facility] [place] [address] [facility] Address [address] [place] [address] Care Team Providers Care Paint Grinder Name Role Phone Keya Sanchez Primary Care Provider [phone] Allergies No known active allergies Medications meloxicam (MOBIC) 7.5 mg tablet Take 7.5 mg by mouth daily 10/08/2022 Active Active Problems Problem Noted Date Diagnosed Date Hidradenitis suppurativa of left axilla 11/12/19 22 Assessment & Plan (01/01/2022 6:19 PM CDT): Advised warm compresses Will use bactroban to nares x 7 days due to potential for mrsa carrier status Will keep appt for ct and gen surg consult as planned Advised f/u for this boil in the next week if not improving, sooner if worsening Assessment & Plan (11/24/2021 7:58 PM CUPOLA LINER HELPER): Advised warm compresses, amoxicillin Advised f/u in 1w if not improving, sooner if worsening Assessment & Plan (11/12/2021 9:34 PM CUPOLA LINER HELPER): Advised warm compresses bid Advised bactrim Advised f/u in 1w if not improving, sooner if worsening She will also keep appt with surgeon and derm as planned Abdominal mass, LUQ (left upper quadrant) 2021 Assessment & Plan (10/13/2021 4:03 PM CUPOLA LINER HELPER): Discussed/advised workup including labs, ct abd/pelvis - she has appt pending with surgeon and wants to keep that appt and discuss with him first. She will let us know outcome of that appt. Candidiasis 10/13/2021 Assessment & Plan (10/13/2021 4:03 PM CUPOLA LINER HELPER): Will start on nystatin bid x 7 days Arm pain, left 09/11/2021 Assessment & Plan (09/11/2021 3:52 PM CUPOLA LINER HELPER): We reviewed US of axilla. Provider called [facility] and arranged for surgical consult with Dr. Darwin Howard on 10/16/21 at 930am. This information was given to patient. She will complete a stat venous US of the LUE at [facility] today - will notify her of results at time of exam. We discussed PT pending results of workup today. History of hidradenitis suppurativa 09/11/2021 Cellulitis of left upper extremity 09/02/2021 Assessment & Plan (09/02/2021 8:00 PM CUPOLA LINER HELPER): US of left axilla, will notify her of results We reviewed recent labs, including normal WBC Will evaluate her for bartonella given history Lymphadenopathy 09/02/2021 Assessment & Plan (09/02/2021 8:00 PM CUPOLA LINER HELPER): US of left axilla, will notify her of results We reviewed recent labs, including normal WBC Will evaluate her for bartonella given history BMI 26.0-26.9,adult 01/20/2021 Assessment & Plan (01/20/2021 9:20 AM CDT): Weight/BMI is in healthy range. Continue healthy lifestyle to maintain. Bilateral hand pain 01/20/2021 Assessment & Plan (01/20/2021 10:12 AM CDT): Will evaluate further with labs, will notify her of results as available Fatigue 01/20/2021 Assessment & Plan (11/24/2021 7:58 PM CUPOLA LINER HELPER): Retrieve records from [facility] for review Advised f/u with cheese blender Assessment & Plan (01/20/2021 10:12 AM CDT): Will evaluate further with labs, will notify her of results as available Advised starting adult daily mvi Iron deficiency 01/20/2021 Assessment & Plan (01/20/2021 10:12 AM CDT): Will evaluate further with labs, will notify her of results as available Vitamin D deficiency 11/24/2017 Assessment & Plan (01/20/2021 10:12 AM CDT): Will evaluate further with labs, will notify her of results as available Resolved Problems Problem Noted Date Diagnosed Date Resolved Date Encounter to establish care 01/20/2021 09/01/2021 Assessment & Plan (01/20/2021 10:12 AM CDT): She is going to retrieve labs from [facility] and bring office a copy Immunizations Immunization Administration Dates Next Due DTP 06/01/1996, 4,01/17/1991,1990,1 10/29/1989 Hep B, Adolescent or Pediatric 10/12/2001,2000,05/25/1997 HiB 12/20/1991,07/19/1991,04/10/1991 ,01/17/1991 MMR 06/01/1996,12/20/1991 OPV 06/01/1996,06/10/1994,1990 ,1990 Td, adsorbed 06/09/2001 Tdap 11/01/2019 Surgical History Surgery Date Site/Laterality Comments BREAST BIOPSY 10/04/2007 - 10/03/2008 Right EAR SURGERY 10/04/2008 - 10/03/2009 Right cyst removal BREAST LUMPECTOMY 05/04/2010 - 06/03/2010 Family History Medical History Relation Name Comments Gout Father Hypertension Father Hearing loss Maternal Grandfather Arthritis Mother Hypertension Mother Colon cancer Paternal Grandmother Relation Name Status Comments Father Alive Maternal Grandfather Mother Alive Paternal Grandmother Alive Social History Tobacco Use Types Packs/Day Years Used Date Smoking Tobacco: Never Smokeless Tobacco: Never AUDIT-C Answer Date Recorded Q1: How often do you have a drink containing alc ohol? Patient declined 12/02/2022 Average Number of Drinks Not on file 023 Frequency of Binge Drinking Not on file 10/2022 PHQ-2 Answer Date Recorded PHQ-2 Total Score (If total score is 3 or more points, staff should administer the PHQ-9) 0 01/01/2022 Hunger Vital Sign Answer Date Recorded Within the past 12 months, y ou worried that your food would run out before you got the money to buy more. Sometimes true Within the past 12 months, t he food you bought just didn't last and you didn't have money to get more. 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 Not on file Not on file Not on [facility] Obstetrics History Last Filed Vital Signs Vital Sign Reading Time Taken Comments Blood Pressure 113/85 12/02/2022 1:02 PM CUPOLA LINER HELPER Pulse 72 12/02/2022 1:02 PM CUPOLA LINER HELPER Temperature 36.5 C (97.7 F) 12/02/2022 1:02 PM CUPOLA LINER HELPER Respiratory Rate 16 12/02/2022 1:02 PM CUPOLA LINER HELPER Oxygen Saturation 100% 12/02/2022 1:02 PM CUPOLA LINER HELPER ra Inhaled Oxygen Concentration - - Weight 73.3 kg (161 lb 8 oz) 12/02/2022 1:02 PM CUPOLA LINER HELPER Height 167.6 cm (5' 6) 12/02/2022 1:02 PM CUPOLA LINER HELPER Body Mass Index 26.07 12/02/2022 1:02 PM CUPOLA LINER HELPER Plan of Treatment Health Maintenance Due Date Last Done Comments Cervical Cancer Screening 1990 Hepatitis C Screening 1990 Varicella Vaccines (1 of 2 - 13+ 2-dose series) 2003 Regular Well Visit/Exam 18-64 2008 HPV Vaccines (1 - 3-dose SCDM series) 2017 Depression Screening 01/01/2023 01/01/2022, 11/24/2021, 11/12/2021, Additional history exists Influenza Vaccine (#1) 2025 DTaP/Tdap/Td Vaccine (7 - Td or Tdap) 11/01/2029 11/01/2019, 06/09/2001, 06/01/1996, Additional history exists Hepatitis B Screening Completed 10/12/2001 , 06/09/2001, 05/25/1997 Pneumococcal vaccine <65 Aged Out No longer eligible based on patient's age to complete this topic Insurance [facility] Care Teams Paint Grinder Relationship Specialty Start Date End Date Keya Sanchez PA PCP - General Beef Farmer 01/15/21
--- NOTE | 2025-07-16 11:25 | PC.NURSE ---
Pt. called x2 in [place] with no reply.
--- OUTSIDE RECORDS SUMMARY | 2025-07-16 13:06 | XMS_ITS | Clinical Summary ---
Author Organization [facility] Address [address] [place] [address] Care Team Providers Care Broiler Supervisor Name Role Phone Ailin Cardoza Primary Care Provider [phone] Allergies No known active allergies Medications No known medications Active Problems Problem Noted Date Diagnosed Date Lump of axilla, left 11/06/2019 Lymphadenopathy 07/23/2019 Antibiotic-induced yeast infection 07/23/2019 Dermatitis 07/23/2019 Vitamin D deficiency 11/24/2017 Immunizations Immunization Administration Dates Next Due Tdap (Generic) 11/01/2019 Family History Medical History Relation Comments Hypertension Father Hypertension Maternal Grandfather Hypertension Maternal Grandmother Hypertension Mother Hypertension Paternal Grandfather Hypertension Paternal Grandmother Relation Status Comments Father Maternal Grandfather Maternal Grandmother Mother Paternal Grandfather Paternal Grandmother Social History Tobacco Use Types Packs/Day Years Used Date Smoking Tobacco: Never Smokeless Tobacco: Never Alcohol Use Standard Drinks/Week Comments No 0 (1 standard drink = 0.6 oz pur e alcohol) AUDIT-C Answer Date Recorded Frequency of Alcohol Consumption Never 07/18/2019 Average Number of Drinks Not on file 019 Frequency of Binge Drinking Not on file 07/04 PHQ-2 Answer Date Recorded PHQ-2 Score 0 10/12/2019 Comments No Sex and Gender Information Value Date Recorded Sex Assigned at Not on file Legal Sex Female 5:19 PM CDT Gender Identity Not on file Sexual Orientation Not on file Last Filed Vital Signs Vital Sign Reading Time Taken Comments Blood Pressure 105/71 11/06/2019 10:10 AM LASTING MACHINE OPERATOR Pulse 56 11/06/2019 10:10 AM LASTING MACHINE OPERATOR Temperature 36.4 C (97.5 F) 10/12/2019 11:09 AM LASTING MACHINE OPERATOR Respiratory Rate 16 11/06/2019 10:10 AM LASTING MACHINE OPERATOR Oxygen Saturation 99% 11/06/2019 10:10 AM LASTING MACHINE OPERATOR Inhaled Oxygen Concentration - - Weight 67.1 kg (148 lb) 11/06/2019 10:10 AM LASTING MACHINE OPERATOR Height 166.4 cm (5' 5.5) 11/06/2019 10:10 AM CS T Body Mass Index 24.25 11/06/2019 10:10 AM LASTING MACHINE OPERATOR Plan of Treatment Health Maintenance Due Date Last Done Comments Cervical Cancer Screening Pa p Smear (Age 30 to 64) Every 3 Years 1990 Annual Physical 1993 Hepatitis C 2008 Hepatitis B Vaccines (1 of 3 - 19+ 3-dose series) 2009 HPV Vaccines (1 - 3-dose SCD M series) 2017 Cervical Cancer Screening Pa p with HPV Testing (Age 30 to 64) Every 5 Years 2020 Cervical Cancer Screening with HPV 2020 COVID-19 Vaccine (2023-2 5 season) 2025 Influenza Adult (#1) 2025 DTaP, Tdap and Td Vaccines ( 2 - Td or Tdap) 11/01/2029 11/01/2019 Meningococcal B Vaccine Aged Out No l onger eligible based on patient's age to complete this topic Meningococcal Vaccine Aged Out No micaela arnulfo eligible based on patient's age to complete this topic Pneumococcal Vaccine: Pediat rics (0 to 5 Years) and At-Risk Patients (6 to 49 Years) Aged Out No longer eligi ble based on patient's age to complete this topic RSV Immunizations Under 20 Months Aged Out No longer eligible based on patient's age to complete this topic Insurance Care Teams Broiler Supervisor Relationship Specialty Start Date End Date Ailin Cardoza FNP [address] [place] [id number] PCP - General Nurse Practitioner Family 08/25/19
--- OUTSIDE RECORDS SUMMARY | 2025-07-16 13:06 | XMS_ITS | Clinical Summary ---
Author Organization [facility] [address] [facility] Address [address] [place] [address] Care Team Providers Care Stationary Engineer Apprentice Name Role Phone Keya Sanchez Primary Care Provider [phone] Allergies No known active allergies Medications meloxicam [...] worsening Assessment & Plan (11/24/2021 7:58 PM DIRECTOR MORTGAGE): Advised warm compresses, amoxicillin Advised f/u in 1w if not improving, sooner if worsening Assessment & Plan (11/12/2021 9:34 PM DIRECTOR MORTGAGE): Advised warm compresses bid Advised bactrim Advised f/u in 1w if not improving, sooner if worsening She will also keep appt with surgeon and derm as planned Abdominal mass, LUQ (left upper quadrant) 2021 Assessment & Plan (10/13/2021 4:03 PM DIRECTOR MORTGAGE): Discussed/advised workup including labs, ct abd/pelvis - she has appt pending with surgeon and wants to keep that appt and discuss with him first. She will let us know outcome of that appt. Candidiasis 10/13/2021 Assessment & Plan (10/13/2021 4:03 PM DIRECTOR MORTGAGE): Will start on nystatin bid x 7 days Arm pain, left 09/11/2021 Assessment & Plan (09/11/2021 3:52 PM DIRECTOR MORTGAGE): We reviewed US of axilla. Provider called [facility] and arranged for surgical consult with Dr. Darwin Howard on 10/16/21 at 930am. This information was given to patient. She will complete a stat venous US of the LUE at [place] today - will notify her of results at time of exam. We discussed PT pending results of workup today. History of hidradenitis suppurativa 09/11/2021 Cellulitis of left upper extremity 09/02/2021 Assessment & Plan (09/02/2021 8:00 PM DIRECTOR MORTGAGE): US of left axilla, will notify her of results We reviewed recent labs, including normal WBC Will evaluate her for bartonella given history Lymphadenopathy 09/02/2021 Assessment & Plan (09/02/2021 8:00 PM DIRECTOR MORTGAGE): US of left axilla, will notify her [...] 01/20/2021 Assessment & Plan (11/24/2021 7:58 PM DIRECTOR MORTGAGE): [place]rieve [place] [facility] [place] Advised f/u with maintenance shop manager Assessment & Plan (01/20/2021 10:12 AM CDT): [...] She is going to retrieve labs from [facility] and bring office a copy Immunizations Immunization [...] on file Legal Sex Female 2:21 AM DIRECTOR MORTGAGE Gender Identity Female 11/21/2021 8:12 AM DIRECTOR MORTGAGE Sexual Orientation Straight 11/21/2021 8: 12 AM DIRECTOR MORTGAGE 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07 12/02/2022 1:02 PM DIRECTOR MORTGAGE Plan of Treatment Health Maintenance Due Date [...] patient's age to complete this topic Insurance [facility] Care Teams Stationary Engineer Apprentice Relationship Specialty Start Date End Date Keya Sanchez PA PCP - General Scheme Technician 01/15/21
== END 2025-07-16 11:51 | disposition left against medical advice (07) ==
LOC: ANHED 11:50
DX: L02.422 Furuncle of left axilla (principal)
CPT/HCPCS: 99199

== ENCOUNTER 2025-07-16 10:52 | Emergency (ER) | payer MEDICAID, SELFPAY ==
--- NOTE | 2025-07-16 10:57 | ED_ITS ---
HPI - Skin/Abscess/Foreign Bdy General Chief complaint: Skin/Abscess/Foreign Body Stated complaint: Skin Issues Time Seen by Provider: 07/16/25 10:55 Source: patient Mode of arrival: ambulatory Limitations: no limitations History of Present Illness HPI narrative: Patient is a 35-year-old female that presents with a flare-up of her hidradenitis suppurativa in her right axillary. Denies any active drainage but has painful bumps. Patient has not had flare-up in 2 years and has not seen a insurance investigator since she was having issues. Denies any fever, chills, nausea vomiting, diarrhea. Related Data Allergies Allergy/AdvReac Type Severity Reaction Status Date / Time No Known Allergies Allergy Verified 07/16/25 11:13 Review of Systems 2 Review of Systems: All systems reviewed & are unremarkable except as noted in HPI and below Constitutional: Constitutional: Denies body ache(s), Denies chills, Denies fatigue, Denies fever(s), Denies headache(s), Denies malaise and Denies weakness Eyes: Eyes: Denies blurry vision, Denies irritation and Denies loss of vision ENT: Denies otalgia, Denies headache(s), Denies nasal discharge, Denies sinus pain and Denies sore throat Cardiovascular: Cardiovascular: Denies chest pain, Denies irregular heart rhythm and Denies dyspnea Respiratory: Respiratory: Denies dyspnea Gastrointestinal: Gastrointestinal: Denies abdominal pain, Denies melena, Denies hematochezia, Denies diarrhea, Denies nausea and Denies vomiting Musculoskeletal: Musculoskeletal: Denies back pain, Denies myalgias and Denies arthralgias Integumentary/Breasts: Skin/Breast: Reports swelling, Denies pruritus, Denies rash and Reports skin pain Neurologic: Denies headache(s), Denies loss of vision and Denies weakness Psychiatric: Psychiatric: Reports no additional psychiatric complaints Endocrine: Endocrine: Denies fatigue PMFSH Past Medical History Medical History Suppression of menses Cyst (~2007) cyst removed from right ear Cyst (10/08/19) cyst removed from left arm Abscess of axilla, left Surgical History Surgical History History of colposcopy (01/05/18) Benign S/P lumpectomy, right breast (2011) right breast biopsy Benign Family History Family History Father Hypertension Mother Hypertension Sibling Hypertension Social History Social History Smoking status: Never smoker Second hand tobacco smoke exposure: No Alcohol intake: never Substance use: never Substance use type: does not use Do You Feel Safe in your Home?: Yes Lack of Transportation: No Lack of Food: Never True Current Housing: I Have Housing Concerned About Future Housing: No Difficulty Paying Gas/Electric Bills: No Difficulty Paying for Meds: No Currently Unemployed: No Education: High School Diploma/GED Difficulty w/ Childcare or Family Care: No Living arrangements: other Additional living arrangements comments: single Occupation/Education: occupation 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 There is no relevant family history pertinent to the presenting complaint. Exam 2 Const: General: cooperative, healthy appearing, comfortable, no acute distress and well nourished Nutritional Appearance: well nourished O rientation/consciousness: patient oriented x3 Limitations: no limitations HENMT: Head: normal to inspection, normocephalic and atraumatic Ears: h earing grossly normal bilaterally and external ears normal Face/Nose/Sinus: N ormal external nose present, normal facial exam and face symmetric Face and sinus: normal facial exam and face symmetric Mouth: Yes lip normal Eyes: General: appearance normal, both eyes and all related structures A lignment and Position: alignment normal and position normal Periorbital: p eriorbital findings normal Eyelids: eyelids normal Pupils: Equal, round and reactive pupils present EOM: EOMs intact bilaterally Neck: Neck: normal visual inspection, full ROM and supple Chest: Chest palpation & inspection: normal inspection of the chest B reast/axilla inspection: abnormal inspection of the axilla right Chest/axillae images: 1. Area of tenderness on palpation with nodules. Patient self-reported this is her typical presentation. No open wounds or active drainage Resp: Effort & Inspection: normal respiratory effort and able to speak in complete sentences Auscultation: clear to auscultation bilaterally Cardio: Rate: regular rate Rhythm: regular rhythm Heart sounds: S1 normal heart sound present and S2 normal heart sound present GI: Inspection: normal to inspection Skin: General skin exam: normal color and no rashes or lesions noted Neuro: General: patient oriented x3 and moves all extremities Cranial nerves: Yes Equal, round and reactive pupils present Speech: normal speech Gait exam (Neuro): Normal gait present Extrem: General: normal to inspection, full ROM and no edema Psych: Appearance: grossly normal and well kempt Mental Status: mental status grossly normal Speech and movement: Normal speech and movement present Affect: normal affect Attitude: cooperative Thought process: Normal thought process present Course Course Emergency Course: Patient is aware of diagnosis, understands and agrees to treatment plan. Anticipatory guidance given. Patient agrees to follow-up as directed and is aware of reasons to seek care at the emergency department. Portions of this record may have been created with voice recognition software Level of Care: Express Care Visit Vital Signs Vital signs: Reviewed MDM - Skin/Abscess/Foreign Bdy MDM Narrative Medical decision making narrative: Will treat with doxycycline, clindamycin cream and meloxicam as that was a previous treatment by her insurance investigator. Pt well hydrated appearing, in no respiratory distress, hemodynamically stable. Recommend supportive care. The patient is stable at time of discharge the clinical impression was discussed and the patient was given the opportunity to ask questions, which were addressed as completely as possible given the information available at present. Anticipatory guidance and return to care precautions were discussed and the importance of primary care follow-up was stressed and encouraged. The patient voiced understanding of the plan, indications to return, and the need for follow-up. Exam findings show no acute concerns or changes Patient is appropriate for outpatient treatment and follow-up. Differential Diagnosis Differential diagnosis: Likely abscess of skin or subcutaneous tissue, cellulitis, contact dermatitis and other (Hydradenitis suppurativa) Medical Records Attestation: I reviewed the patient's medical records. Discharge Plan Discharge Clinical Impression: Hidradenitis suppurativa Patient Disposition: Home Condition: Stable Instructions: Hidradenitis Suppurativa (ED) Additional Instructions: 1) Please follow-up with insurance investigator within 1 week 2) If you have any worsening of symptoms or any other urgent concerns please go to the ER. 3) Please take medications as prescribed and continue taking your home medications as usual. 4) Please read and follow information included in discharge instructions. Patient Language: Prydeinig Prescriptions: New doxycycline monohydrate 100 mg tablet 100 mg PO BID 10 Days Qty: 20 0RF clindamycin phosphate 1 % gel, once daily 1 applic topical DAILY 10 Days Qty: 75 0RF meloxicam 7.5 mg tablet 7.5 mg PO DAILY Qty: 15 0RF Follow-up/Referrals: PHYSICIAN,COMMERCIAL CREDIT REVIEWER [Primary Care Provider, Internal Medicine] Stand Alone Forms: Work/School Release IP Time of Disposition: 11:17
[2025-07-16 11:00] VITALS: BP 117/70; PULSE 71; RESP 18; TEMP 36.1; O2SAT 100
== END 2025-07-16 11:20 | disposition home or self-care (01) ==
PROVIDERS: Emergency Provider Nurse Practitioner Family
DX: L73.2 Hidradenitis suppurativa (principal)
CPT/HCPCS: 99213; G0463

== ENCOUNTER 2025-09-22 18:27 | Emergency (ER) | payer OTHER, MEDICAID, SELFPAY ==
--- NOTE | ~2025-09-22 | CT_ITS ---
CT HEAD NON-CONTRAST Clinical History: intractable new headache Comparison: None Technique: Unenhanced axial images skull base to vertex Coronal, sagittal reformats CT images acquired with automatic exposure control for dose reduction DLP: 605 mGy-cm Findings: Sulci, ventricles: Unremarkable. No intracerebral hemorrhage. No evidence acute territorial infarct. No mass effect, midline shift. Bony calvarium intact. Visualized paranasal sinuses: Clear. Mastoid air cells: Clear. IMPRESSION: 1. No acute intracranial findings. Reviewed, dictated and finalized at location R. HANDISE COLLECTOR
[2025-09-22 18:27] VITALS: BP 141/74; PULSE 100; RESP 18; TEMP 36.8; O2SAT 100
--- OUTSIDE RECORDS SUMMARY | 2025-09-22 18:28 | XMS_ITS | Clinical Summary ---
Author Organization [facility] Address [address] [place] [address] Care Team Providers Care Design Sales Consultant Name Role Phone Ailin Cardoza Primary Care Provider [phone] Allergies No known active allergies Medications No [...] Comments Blood Pressure 105/71 11/06/2019 10:10 AM UTILITY APPRAISER Pulse 56 11/06/2019 10:10 AM UTILITY APPRAISER Temperature 36.4 C (97.5 F) 10/12/2019 11:09 AM UTILITY APPRAISER Respiratory Rate 16 11/06/2019 10:10 AM UTILITY APPRAISER Oxygen Saturation 99% 11/06/2019 10:10 AM UTILITY APPRAISER Inhaled Oxygen Concentration - - Weight 67.1 kg (148 lb) 11/06/2019 10:10 AM UTILITY APPRAISER Height 166.4 cm (5' 5.5) 11/06/2019 10:10 AM CS T Body Mass Index 24.25 11/06/2019 10:10 AM UTILITY APPRAISER Plan of Treatment Health Maintenance Due Date [...] Cancer Screening with HPV 2020 COVID-19 Vaccine ( - 2024-2 6 season) 2025 Influenza Adult (#1) 2025 DTaP, Tdap and Td Vaccines ( 2 - Td or Tdap) 11/01/2029 11/01/2019 Hepatitis A Vaccines Aged Out No long er eligible based on patient's age to complete this topic Meningococcal B Vaccine Aged Out No l [...] to complete this topic Insurance Care Teams Design Sales Consultant Relationship Specialty Start Date End Date Ailin Cardoza FNP [facility] [place], [place] [id number] PCP - General Nurse Practitioner Family 08/25/19
--- NOTE | 2025-09-22 21:00 | ED.HA ---
HPI - Headache General Chief Complaint: Headache Stated Complaint: headache Time Seen by Provider: 09/22/25 21:00 History of Present Illness HPI Narrative: 35-year-old female presents emergency department with a gradual onset diffuse headache since . She endorses some photophobia but denies any fevers chills neck stiffness. Denies any sore throat. Denies any ocular complaints. No lateralizing weakness or paresthesias. Denies any trauma. States she has tried some Motrin Excedrin migraine with some relief. States she has been more stressed than normal she is working a fair amount. She denies any chronic medical conditions states he does not normally get headaches. Related Data Allergies Allergy/AdvReac Type Severity Reaction Status Date / Time No Known Allergies Allergy Verified 09/22/25 18:29 Review of Systems Review of Systems: All systems reviewed & are unremarkable except as noted in HPI and below PMFSH Past Medical History Medical History Suppression of menses Cyst (~2007) cyst removed from right ear Cyst (10/08/19) cyst removed from left arm Abscess of axilla, left Surgical History Surgical History History of colposcopy (01/05/18) Benign S/P lumpectomy, right breast (2011) right breast biopsy Benign Family History Family History Father Hypertension Mother Hypertension Sibling Hypertension Social History Social History Smoking status: Never smoker Second hand tobacco smoke exposure: No Alcohol intake: never Substance use: never Substance use type: does not use Lack of Transportation: No Lack of Food: Never True Current Housing: I Have Housing Concerned About Future Housing: No Difficulty Paying Gas/Electric Bills: No Difficulty Paying for Meds: No Currently Unemployed: No Education: High School Diploma/GED Difficulty w/ Childcare or Family Care: No Living arrangements: other Additional living arrangements comments: single Occupation/Education: occupation 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 HEAD: Normal with no signs of head trauma. EYES: EOMI, conjunctiva normal ENT: Hearing grossly intact LUNGS: Nonlabored breathing. HEART: Regular rate and rhythm ABD: Soft, nontender to palpation EXT: Normal range of motion SKIN: No rashes or lesions. NEURO: Alert. No gross focal sensory or strength deficits., ambulates with a steady gait neuro intact cranial nerves 2-12 intact cerebellar testing negative PSYCH: Normal affect Course Vital Signs Vital signs: Vital Signs Temperature 36.8 C 09/22/25 18:27 Pulse Rate 100 09/22/25 18:27 Respiratory Rate 18 09/22/25 18: Blood Pressure 141/74 H 09/22/25 18:27 Pulse Oximetry 100 09/22/25 18:27 Temperature 36.6 C 09/22/25 21:03 Pulse Rate 91 09/22/25 21:03 Respiratory Rate 16 09/22/25 21:03 Blood Pressure 117/69 09/22/25 21:03 Pulse Oximetry 100 09/22/25 21:03 Oxygen Delivery Room Air 09/22/25 21:03 MDM Differential Diagnosis Differential Diagnosis: 35-year-old female presents with headache. Strongly suspect a primary etiology specifically migrainous headache in her history age and gender however also on differential is a secondary headache such as space-occupying mass or less likely brain bleed. I will treat her symptomatically with multimodal pain control on a migraine cocktail containing CT head to rule out any more sinister etiologies. Plan for evaluation for treatment. Results and re-evaluation Upon re-evaluation the patient's pain is much improved. CT scan negative as read by Radiology for an intracranial mass or bleed. She is neurologically intact. I will send her home with a work note and Toradol for pain control otherwise follow-up with primary care doctor in the coming week return sooner for any new or concerning symptoms. All questions answered discharged in stable condition Medical Records I have reviewed the following patient records and this information was taken into consideration when formulating the assessment and plan.: previous ER visits Lab Data MDM Lab Attestation statement: I personally reviewed the patient's lab results. Labs: Lab Results 09/22/25 Range/Units 22:12 POC Urine HCG, Qual Negative (Negative) Imaging Data Attestation: I personally reviewed and interpreted this imaging study as follows: Discharge Plan Discharge Clinical Impression: Headache Patient Disposition: Home Condition: Improved Instructions: Antibiotic Form, Acute Headache (ED) Patient Language: Citizen Of [place] Prescriptions: No Action doxycycline monohydrate 100 mg tablet 100 mg PO BID 10 Days Qty: 20 0RF clindamycin phosphate 1 % gel, once daily 1 applic topical DAILY 10 Days Qty: 75 0RF meloxicam 7.5 mg tablet 7.5 mg PO DAILY Qty: 15 0RF Follow-up/Referrals: PHYSICIAN,HEAT REGULATOR [Primary Care Provider, Internal Medicine] Time of Disposition: 00:08
[2025-09-22 21:03] VITALS: BP 117/69; PULSE 91; RESP 16; TEMP 36.6; O2SAT 100
--- NOTE | 2025-09-22 21:09 | PC.NURSE ---
Per pt has been having headache x2 days, and seeing some holman spots. Pt states she took ibuprofen yesterday and it helped with pain but didnt want to continue taking it. Pt also states can you write in my chart i work 10hr days and its worse.
[2025-09-22] MEDS: PROCHLORPERAZINE MALEATE 5 MG TABLET PO (22:12)
[2025-09-22] MEDS: diphenhydrAMINE HCl CAP 25 MG CAPSULE PO (22:12)
[2025-09-22 22:13] LABS: BEDSIDEPREGUCG Negative (Negative)
[2025-09-22] MEDS: KETOROLAC 30 MG/ML VIAL (*BKC) IM (22:15)
[2025-09-23 00:13] VITALS: BP 127/72; PULSE 80; RESP 16; TEMP 36.4; O2SAT 100
== END 2025-09-23 00:14 | disposition home or self-care (01) ==
PROVIDERS: Emergency Provider Emergency Medicine
DX: R51.9 Headache, unspecified (principal)
CPT/HCPCS: 70450; 81025; 96372; 99284; A9270; J1885